=== PATIENT | female | born 1995 | race Caucasian/White ===

== ENCOUNTER 2024-12-05 13:03 | Observation (INO) ==
[2024-12-05 14:38] LABS: BASOPHILS % (AUTO) 0.3 %; EOSINOPHILS % (AUTO) 0.2 %; HCT - HEMATOCRIT 40.2 % (37.0-47.0); HGB - HEMOGLOBIN 12.6 g/dL (12.0-16.0); LYMPHOCYTES # (AUTO) 2.2 10^3/uL (1.5-3.5); MEAN CORPUSCULAR HEMOGLOBIN 27.2 pg (27.0-31.0); MEAN CORPUSCULAR HGB CONC 31.3 g/dL (32.0-36.0); MEAN CORPUSCULAR VOLUME 86.8 fL (81.0-99.0); MONOCYTES # (AUTO) 0.7 10^3/uL (0.0-1.0); MONOCYTES % (AUTO) 7.8 %; NEUTROPHILS % (AUTO) 66.5 %; PLT - PLATELET COUNT 279 10^3/uL (130-450); RED BLOOD COUNT 4.63 10^6/uL (4.20-5.40); RED CELL DISTRIBUTION WIDTH 15.6 % (12.0-15.0)
[2024-12-05 14:49] LABS: BILIRUBIN,URINE NEGATIVE (NEGATIVE); GLUCOSE, URINE (UA) NEGATIVE (NEGATIVE); KETONES,URINE (UA) NEGATIVE (NEGATIVE); LEUKOCYTE ESTERASE, URINE NEGATIVE (NEGATIVE); NITRITE,URINE NEGATIVE (NEGATIVE); OCCULT BLOOD,URINE NEGATIVE (NEGATIVE); PROTEIN,URINE NEGATIVE (NEGATIVE); UROBILINOGEN,URINE 0.2 (NORMAL) E.U./dL (NORMAL)
[2024-12-05 14:51] LABS: CLARITY,URINE CLEAR (CLEAR); HCG UR QUAL NEGATIVE
[2024-12-05 14:52] LABS: ALBUMIN 4.1 g/dL (3.2-5.5); ALBUMIN/GLOBULIN RATIO 1.8 (1.0-2.2); BILIRUBIN,TOTAL 0.2 mg/dL (0.2-1.0); CALCIUM 9.1 mg/dL (8.5-10.3); CREATININE 0.6 mg/dL (0.6-1.3); POTASSIUM 3.4 mmol/L (3.5-4.5); TOTAL PROTEIN 6.4 g/dL (6.4-8.9)
--- NOTE | 2024-12-05 14:58 | ED Physician Documentation ---
History of Present Illness Stated complaint Stated Complaint: /PX Chief complaint Chief Complaint: Abd Pain History obtained from History obtained from: Patient History of Present Illness Pain level max: 10 Pain level now: 10 Additonal information Additional information: Patient is a 29-year-old female who presents to the emergency department with ongoing right pelvic pain. She states that she was at [facility] on December 03 and was taken to the operating room for potential ovarian torsion. She states that they removed her right fallopian tube but left the right ovary. She states that she has a history of ovarian torsion on the right side many years ago. Patient states that she was seen at [facility] again last night for increasing pain and had a repeat CT scan which did not show any acute abnormalities. She states that ketamine worked well for her pain. She is on Suboxone at home. Has also had issues with constipation. Review of Systems Constitutional Denies: Fever or Chills Cardiovascular Denies: chest pain or shortness of breath with exertion Respiratory Denies: Shortness of breath or Cough Gastrointestinal Denies: Vomiting Genitourinary Denies: Painful urination, Urinary frequency or Urinary urgency Meds/Allgy Home Medications Ambulatory Orders Medication Instructions Recorded Confirmed buprenorphine HCl 8 mg sublingual 8 mg sublingual QDAY 08/28/24 11/18/24 tablet cholecalciferol (vitamin D3) 50 50 mcg PO QDAY #90 caps 11/18/24 11/18/24 mcg (2,000 unit) capsule drospirenone (contraceptive) 4 mg 1 tab PO QDAY #84 tabs 11/18/24 11/18/24 (28) tablet (Slynd) levothyroxine 125 mcg tablet 125 mcg PO QDAY #90 tabs 11/18/24 11/18/24 (Synthroid) omega 8-brn-qqh-fish oil 300 2 cap PO BID #240 caps 11/18/24 11/18/24 mg-1,000 mg capsule (Fish Oil) vitamins no.154-ferrous 1 tab PO .daily #90 tabs 11/18/24 11/18/24 fumarate 27 mg-folic acid 1 mg tablet sertraline 50 mg tablet (Zoloft) 50 mg PO QDAY #90 tabs 11/18/24 11/18/24 Allergies Allergies Allergy/AdvReac Type Severity Reaction Status Date / Time haloperidol Allergy Severe Unknown Verified 12/05/24 13:08 metoclopramide Allergy Severe Hallucinati Verified 12/05/24 13:08 ons prochlorperazine Allergy Severe Hallucinati Verified 12/05/24 13:08 ons Iodinated Contrast Media Allergy Mild Itching Verified 12/05/24 13:08 amoxicillin Allergy Hives Verified 12/05/24 13:08 azithromycin Allergy Unknown Verified 12/05/24 13:08 clavulanic acid (From Allergy Hives Verified 12/05/24 13:08 Augmentin) fluoxetine Allergy Unknown Verified 12/05/24 13:08 vancomycin Allergy Unknown Verified 12/05/24 13:08 PFSH Active Problems All Active Problems (Updated 12/05/24 @ 17:42 by Sheldon Brown MD) Ovarian torsion (Acute) Pelvic pain in female (Acute) Mixed anxiety and depressive disorder (Acute) Delmy thyroiditis (Acute) At risk for breast cancer (Acute) Opioid dependence on maintenance agonist therapy, no symptoms (Acute) Hypothyroid (Acute) Medical History Medical History (Updated 12/05/24 @ 17:42 by Sheldon Brown MD) IUD failure, (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 History of hyperemesis gravidarum lost 30 pounds in beginning of 3rd Supraventricular tachycardia now resolved. Surgical History Surgical History (Updated 11/18/24 @ 16:19 by Tanisha Rivera MD) History of repair of ACL History of tonsillectomy History of appendectomy History of cholecystectomy History of delivery (02/16/22) Family History Family History (Updated 08/21/24 @ 08:51 by Fay Flaherty RN) Father Alcoholism Anxiety Maternal grandmother COPD (chronic obstructive pulmonary disease) Lupus (systemic lupus erythematosus) Rheumatoid arthritis Maternal grandfather Diabetes High blood pressure Mother High blood pressure Lupus (systemic lupus erythematosus) Malignant melanoma Rheumatoid arthritis Thyroid disease Brother Seizure Social History Social History (Updated 08/19/24 @ 15:58 by Fay Flaherty RN) Smoking Status: Unknown if ever smoked Do you feel safe in your home environment?: Yes Suffered physical, verbal, emotional, or financial abuse?: No Exam Exam Vital Signs: Vital Signs x48h Temp Pulse Resp BP Pulse Ox 12/05/24 17:50 36.8 C 91 18 130/81 96 12/05/24 17:00 95 18 130/81 96 12/05/24 15:54 92 18 121/76 97 12/05/24 13:08 36.5 C 100 18 132/80 H 100 Constitutional normal general appearance Patient appears uncomfortable, rocking back and forth in the bed HENMT oral mucous membranes normal Eyes PERRL Neck/C-Spine trachea midline Respiratory breath sounds equal bilaterally and normal respiratory effort Cardiovascular normal heart rate noted and regular rhythm noted Gastrointestinal abdomen soft to palpation and nondistended Tender to palpation right lower quadrant without peritoneal signs Genitourinary no CVA tenderness Extremities No calf tenderness or cord. No edema Psychiatry mental status grossly normal and oriented x3 Skin skin color normal Results Vitals Vitals: Vital Signs - 24 hr 12/05/24 13:08 12/05/24 15:54 12/05/24 16:26 Temperature 36.5 C Temperature Source Tympanic Pulse Rate 100 92 Respiratory Rate 18 18 Blood Pressure 132/80 H 121/76 O2 Saturation 100 97 O2 Source Room air Room air Pain Intensity 9 7 7 12/05/24 17:00 12/05/24 17:50 Temperature 36.8 C Temperature Source Temporal Artery Scan Pulse Rate 95 91 Respiratory Rate 18 18 Blood Pressure 130/81 130/81 O2 Saturation 96 96 O2 Source Room air Room air Pain Intensity 8 7 Oxygen O2 Source Room air Labs Labs: Laboratory Tests 12/05/24 12/05/24 14:30 14:39 WBC 9.0 RBC 4.63 Hgb 12.6 Hct 40.2 MCV 86.8 MCH 27.2 MCHC 31.3 L RDW 15.6 H Plt Count 279 MPV 10.0 Neut # (Auto) 6.0 Lymph # (Auto) 2.2 [place] # (Auto) 0.7 Eos # (Auto) 0.0 Baso # (Auto) 0.0 Absolute Nucleated RBC 0.00 Nucleated RBC % 0.0 Sodium 140 Potassium 3.4 L Chloride 110 Carbon Dioxide 25 Anion Gap 5.0 L BUN 11 Creatinine 0.6 Estimated GFR (MDRD) 120 Glucose 88 Calcium 9.1 Total Bilirubin 0.2 AST 15 ALT 10 Alkaline Phosphatase 62 Total Protein 6.4 Albumin 4.1 Globulin 2.3 Albumin/Globulin Ratio 1.8 Lipase 29 Urine Color YELLOW Urine Clarity CLEAR Urine pH 6.0 Ur Specific [place] 1.010 Urine Protein NEGATIVE Urine Glucose (UA) NEGATIVE Urine Ketones NEGATIVE Urine Occult Blood NEGATIVE Urine Nitrite NEGATIVE Urine Bilirubin NEGATIVE Urine Urobilinogen 0.2 (NORMAL) Ur Leukocyte Esterase NEGATIVE Ur Microscopic Review NOT INDICATED Urine Culture Comments NOT INDICATED Urine HCG, Qual NEGATIVE Rads (name of study) Pelvic ultrasound: Relevant Findings:: Final report received PD Medical Decision Making ED course Complexity details: reviewed old records, reviewed results, re-evaluated patient, considered differential, d/w patient and d/w weight loss sales consultant ED course: Obtain records from [facility] and reviewed them. Patient was given ketamine and buprenorphine for pain, pain difficult to control. Consulted with gynecology, Dr. Lugo, she recommends obtaining a pelvic ultrasound. This was performed. Possible decreased flow to the ovary. She came and evaluated the patient will take the patient to the OR for further care. This document was made in part using voice recognition software. While efforts are made to proofread this document, sound alike and grammatical errors may occur. Discharge Plan Discharge Patient Disposition: ED Transfer to [facility] Condition: Stable Clinical Impression: Pelvic pain in female, Ovarian torsion
[2024-12-05] MEDS: SODIUM CHLORIDE 0.9% IV STA ×2 (15:01→18:20)
[2024-12-05] MEDS: KETAMINE IV STA ×2 (15:01→18:20)
[2024-12-05] MEDS: KETOROLAC 30 MG/ML VIAL IVP STA (16:26)
[2024-12-05] MEDS: BUPRENORPHINE 0.3 MG/ML VIAL IVP ONE (16:30)
--- NOTE | 2024-12-05 16:40 | Ultrasound Report ---
PROCEDURE: US Pelvic w/TV+Doppler Comp INDICATIONS: R ovarian pain s/p R salpingectomy TECHNIQUE: Real-time scanning was performed of the pelvic organs, with image documentation. Additional endovagi nal scanning was necessary due to incomplete visualization of the adnexal and endometrial structures by transabdominal scanning. Doppler interrogation was performed of the ovaries bilaterally. COMPARISON: None. FINDINGS: Uterus: Uterus is anteverted and normal in size at 10.4 x 3.8 x 5.7 cm. The myometrium is homogeneo us. The endometrium measures 7.4 mm in combined thickness. Ovaries: The right ovary measures 2.4 x 1.5 x 1.7 cm, with a calculated ovarian volume of 3.1 cc. T he left ovary measures 2.1 x 1.7 x 1.3 cm, with a calculated ovarian volume of 2.3 cc. Appropriate b lood flow to the left ovary Doppler interrogation. Evaluation of the right ovary is limited secondary to location, however some blood flow was detected. Less than 12 follicles can be seen in each ovar y. No adnexal masses are seen. No cystic lesions measuring greater than 3 cm. Other: No pathologic free abdominal or pelvic fluid. IMPRESSION: Limited evaluation of the right ovary due to location, however some blood flow is detected. Left ovar y is normal in appearance with flow. Reviewed by: Juancarlos Nails MD on 12/05/2024 4:39 PM PDT Approved by: Juancarlos Nails MD on 12/05/2024 4:39 PM PDT Station ID: [id number]
[2024-12-05] MEDS: ACETAMINOPHEN 1,000 MG/100 ML 1,000 MG/100 ML BAG IV ONE (17:41)
[2024-12-05] MEDS ORDERED: DEXAMETHASONE 4 MG/ML VIAL ONE (19:29)
[2024-12-05] MEDS ORDERED: SUGAMMADEX 200 MG/2 ML VIAL IVP ONE (19:29)
[2024-12-05] MEDS ORDERED: ONDANSETRON 4 MG/2 ML VIAL ONE (19:29)
[2024-12-05] MEDS ORDERED: ROCURONIUM 50 MG/5 ML VIAL ONE ×2 (19:31→19:40)
[2024-12-05] MEDS ORDERED: PROPOFOL 200 MG/20 ML VIAL IVP ONE ×2 (19:31→20:19)
[2024-12-05] MEDS ORDERED: LIDOCAINE 1%-EPI 1:100000 20 ML MDV ONE (19:34)
--- NOTE | 2024-12-05 20:54 | HISTORY & PHYSICAL EXAMINATION ---
Chief Complaint Chief Complaint Chief Complaint: Right lower quadrant pain History of Present Illness Admitted From Admitted From:: [facility] Emergency Room History Obtained From Records Reviewed: [facility] ER and OR records History obtained from: Patient and record review Exam Limitations: Pain History of Present Illness HPI Comment/Other: Patient is a 29 yo , who presented to the ER today for ongoing severe RLQ pain that started 5-6 days ago. Pain is waxing/waning and causes nausea. Last meal was last evening due to severity of pain. She states the pain is similar to her past episode of ovarian torsion, which occurred approx 10 yrs ago. She presented to [facility] for pain on 12/[address] pelvis was negative/normal. She then presented to [facility] on 12/03. CT and pelvic US were normal; but, given presence of acute abdomen, ovarian torsion was suspected and surgical exploration recommended. She is s/p LSC appy 10 yrs ago and has no hx of urolithiasis. Dr. Ward at [facility] completed her surgery on 12/03. Operative findings noted a normal-appearing right ovary but a clubbed right tube with paratubal cysts that could be torsing and contributing to sx. The right tube was removed and the ROV left in situ. The patient reports mild improvement in her pain that night (which she suspects may have just been related to postop recovery and pain meds), and she was sent home late that night. On 12/04, her pain had returned - similar in intensity and location. Repeat CT and pelvic US at [facility] was unchanged. PHTHALIC ACID PURIFIER was re-consulted but suspicion was for non-PHTHALIC ACID PURIFIER cause. She did have notable stool burden during her LSC, so she was encouraged to optimize her bowel regimen. She has been trying to manage pain with Motrin, Tylenol, and hot/cold compresses with no improvement. She reports pain is worse with activity. She denies fever; chills; vaginal discharge, itching, or irritation; or change in bowel or bladder. She acknowledges having chronic constipation due to Suboxone but states she's never had pain like this before due to it. PHTHALIC ACID PURIFIER Hx: reports usually regular, monthly menses but none since vaginal delivery 3 months ago; denies other PHTHALIC ACID PURIFIER hx; she is currently using Slynd for contraception OB Hx: ; G1 - ; G2 - IOL for cholestasis, for NRFHT; G3 - cholestasis, 3 months ago (conceived with IUD) Meds/Allgy Home Medications Ambulatory Orders Medication Instructions Recorded Confirmed buprenorphine HCl 8 mg sublingual 8 mg sublingual QDAY 08/28/24 11/18/24 tablet cholecalciferol (vitamin D3) 50 50 mcg PO QDAY #90 caps 11/18/24 11/18/24 mcg (2,000 unit) capsule drospirenone (contraceptive) 4 mg 1 tab PO QDAY #84 tabs 11/18/24 11/18/24 (28) tablet (Slynd) levothyroxine 125 mcg tablet 125 mcg PO QDAY #90 tabs 11/18/24 11/18/24 (Synthroid) omega 8-myk-hye-fish oil 300 2 cap PO BID #240 caps 11/18/24 11/18/24 mg-1,000 mg capsule (Fish Oil) vitamins no.154-ferrous 1 tab PO .daily #90 tabs 11/18/24 11/18/24 fumarate 27 mg-folic acid 1 mg tablet sertraline 50 mg tablet (Zoloft) 50 mg PO QDAY #90 tabs 11/18/24 11/18/24 Allergies Allergies Allergy/AdvReac Type Severity Reaction Status Date / Time haloperidol Allergy Severe Unknown Verified 12/05/24 13:08 metoclopramide Allergy Severe Hallucinati Verified 12/05/24 13:08 ons prochlorperazine Allergy Severe Hallucinati Verified 12/05/24 13:08 ons Iodinated Contrast Media Allergy Mild Itching Verified 12/05/24 13:08 amoxicillin Allergy Hives Verified 12/05/24 13:08 azithromycin Allergy Unknown Verified 12/05/24 13:08 clavulanic acid (From Allergy Hives Verified 12/05/24 13:08 Augmentin) fluoxetine Allergy Unknown Verified 12/05/24 13:08 vancomycin Allergy Unknown Verified 12/05/24 13:08 PFSH Active Problems All Active Problems Ovarian torsion (Acute) Pelvic pain in female (Acute) Mixed anxiety and depressive disorder (Acute) Delmy thyroiditis (Acute) At risk for breast cancer (Acute) Opioid dependence on maintenance agonist therapy, no symptoms (Acute) Hypothyroid (Acute) Medical History Medical History IUD failure, (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 History of hyperemesis gravidarum lost 30 pounds in beginning of 3rd Supraventricular tachycardia now resolved. Surgical History Surgical History History of repair of ACL History of tonsillectomy History of appendectomy History of cholecystectomy History of delivery (02/16/22) Family History Family History (Updated 08/21/24 @ 08:51 by Fay Flaherty, RN) Father Alcoholism Anxiety Maternal grandmother COPD (chronic obstructive pulmonary disease) Lupus (systemic lupus erythematosus) Rheumatoid arthritis Maternal grandfather Diabetes High blood pressure Mother High blood pressure Lupus (systemic lupus erythematosus) Malignant melanoma Rheumatoid arthritis Thyroid disease Brother Seizure Social History Social History (Updated 08/19/24 @ 15:58 by Fay Flaherty, RN) Smoking Status: Unknown if ever smoked Do you feel safe in your home environment?: Yes Suffered physical, verbal, emotional, or financial abuse?: No POLST Patient has POLST: No POLST Status: Full Code Review of Systems Status of ROS: 10 or more systems reviewed and unremarkable except as noted in history and below Prior Level of Functionality: Fully functional, young parent with 3 month old infant and 3/6 yo children Exam Exam Vital Signs: Vital Signs x48h Temp Pulse Resp BP Pulse Ox 12/05/24 21:21 93 16 120/80 94 12/05/24 21:15 94 20 129/82 95 12/05/24 21:10 37 C 94 16 129/84 95 12/05/24 21:05 96 15 126/82 96 12/05/24 20:55 91 16 120/75 95 12/05/24 20:50 92 22 122/77 94 12/05/24 20:46 96 19 125/77 97 12/05/24 20:40 100 18 127/88 99 12/05/24 20:35 36.3 C L 106 H 14 121/78 99 12/05/24 17:50 36.8 C 91 18 130/81 96 12/05/24 17:00 95 18 130/81 96 12/05/24 15:54 92 18 121/76 97 Constitutional normal general appearance HENMT normocephalic and head/scalp atraumatic Eyes PERRL and EOMs intact bilaterally Respiratory normal respiratory effort Cardiovascular normal heart rate noted and peripheral pulses 2+ throughout Gastrointestinal abdomen soft to palpation and nondistended Tender at RLQ; suprapubic pressure refers pain to RLQ; no rebound; tenderness increased with flexion of abdominal wall Genitourinary Notable tenderness at introitus and bilateral levators, R>L. Pain refers to RLQ during palpation. Extremities normal to inspection Neurology no movement abnormality noted, no focal motor deficit noted and no sensory deficits noted Psychiatry mental status grossly normal, oriented x3, thought process normal, cooperative and affect normal Skin skin color normal Incisions x 3 present on abdomen; 5-mm umbilical incision with some bruising inferiorly; no erythema or exudative discharge; 2 LLQ 5-mm incisions well- approximated with no erythema or discharge Conclusion/Plan Problem List (1) Pelvic pain in female: Plan: 29 yo female with 5-6 days of RLQ pain, possible intermittent torsion. US today notes normal-appearing ovary positioned deep within the pelvis with some flow present. However, this does not completely exclude intermittent torsion. - With increased pain noted during abdominal wall flexion, attempted to manage pain with trial of lidocaine injection in the ER. 10 ml of lidocaine plain was injected at the point of maximal tenderness. After 5 min, she noted no improvement in pain. - Unable to control pain with narcotic pain meds or buprenorphine. Finally, Ketamine IV was helpful. - Discussed pain severity and acute abdomen. As intermittent torsion cannot be excluded, offered repeat LSC with un-torsing of ovary with or without right oophorectomy. Discussed advantage of oophorectomy would be to eliminate the R adnexa as a source for her pain. Disadvantage is loss of (likely) a normal ovary. Pt desired to proceed with surgery and remove the right ovary. Reviewed surgical expectations and risks, including (but not limited to) bleeding, infection, injury to surrounding organs, postop scarring, postop pain, and anesthesia risks (heart attack, stroke, , blood clots). Consent reviewed and signed. - To OR tonight for LSC, R oophorectomy once OR team ready/assembled. (2) Ovarian torsion: (3) Opioid dependence on maintenance agonist therapy, no symptoms: Lab Results Lab results reviewed: Yes 12/05/24 14:30 12/05/24 14:30 Diagnostic Imaging Results Diagnostic Imaging Results: positive Final report reviewed Diagnostic Imaging Results Comments: ER US today (12/05): INDICATIONS: R ovarian pain s/p R salpingectomy TECHNIQUE: Real-time scanning was performed of the pelvic organs, with image documentation. Additional endovaginal scanning was necessary due to incomplete visualization of the adnexal and endometrial structures by transabdominal scanning. Doppler interrogation was performed of the ovaries bilaterally. COMPARISON: None. FINDINGS: Uterus: Uterus is anteverted and normal in size at 10.4 x 3.8 x 5.7 cm. The myometrium is homogeneous. The endometrium measures 7.4 mm in combined thickness. Ovaries: The right ovary measures 2.4 x 1.5 x 1.7 cm, with a calculated ovarian volume of 3.1 cc. The left ovary measures 2.1 x 1.7 x 1.3 cm, with a calculated ovarian volume of 2.3 cc. Appropriate blood flow to the left ovary Doppler interrogation. Evaluation of the right ovary is limited secondary to location, however some blood flow was detected. Less than 12 follicles can be seen in each ovary. No adnexal masses are seen. No cystic lesions measuring greater than 3 cm. Other: No pathologic free abdominal or pelvic fluid. IMPRESSION: Limited evaluation of the right ovary due to location, however some blood flow is detected. Left ovary is normal in appearance with flow.
[2024-12-05] MEDS ORDERED: KETAMINE 500 MG/10 ML VIAL ONE (20:55)
--- NOTE | 2024-12-05 21:29 | ANESTHESIA POST OP EVALUATION ---
Anesthesia Post Eval Post Anesthesia Eval Vitals: Last Vital Signs Temp 37 C 12/05/24 21:10 Pulse 89 12/05/24 21:25 Resp 18 12/05/24 21:25 BP 127/81 12/05/24 21:25 Pulse Ox 95 12/05/24 21:25 CV Function Including HR & BP: Stable Pain Control: Satisfactory Nausea & Vomiting: Negative Mental Status: Baseline Respiratory Status: Airway Patent Hydration Status: Satisfactory Anesthesia Complications: None
--- NOTE | 2024-12-05 21:51 | OPERATIVE REPORT ---
Operative Report General Procedure Data: Operation Date: 12/05/24 19:00 Proposed Procedures p Diagnostic Laparoscopy CAISSON WORKER(Right) - Kate Lugo MD Actual Procedures p Laparoscopic Oopherectomy right - Kate Lugo MD Anesthesia Type General Case Staff Anesthesia Provider: Ijeoma Wood Case Times Into Recovery: 12/05/24 20:33 Procedure Start: 12/05/24 19:38 Procedure End: 12/05/24 20:21 Time out: 12/05/24 19:37 Pre-Op Diagnosis: Female pelvic pain, right lower quadrant; intermittent ovarian torsion Post Op Diagnosis: Same; normal-appearing right ovary Procedure Note Intake, IV Amount (ml): 1,000 Estimated Blood Loss (ml): 5 Output, Urine Amount (ml): 75 Pathology: Right ovary Indications: Severe right lower quadrant pain, suspicious for intermittent ovarian torsion Findings: Normal-appearing right and left ovaries and uterus. Normal-appearing left fallo pian tube. Right tube surgically absent. Appendix and gallbladder surgically absent. Omental adhesion to anterior abdominal wall, at level of the umbilicus. Thin bowel adhesion to R mid flank - left in situ. No endometriosis or inflammatory changes present. Complications: None Other Other Information/Narrative: OPERATIVE NOTE Pre-operative diagnosis: 1. Female pelvic pain, right lower quadrant 2. Suspected intermittent ovarian torsion Procedure: laparoscopic right oophorectomy Post-operative diagnosis: same as above; normal-appearing right ovary Surgeon: Dr. Kate Lugo Spar Machine Operator: JADYN Knox Anesthesia: General Findings: Normal-appearing right and left ovaries and uterus. Normal-appearing left fallopian tube. Right tube surgically absent. Appendix and gallbladder surgically absent. Omental adhesion to anterior abdominal wall, at level of the umbilicus. Thin bowel adhesion to R mid flank - left in situ. No endometriosis or inflammatory changes present. Complications: None apparent EBL: 5 ml UOP: 75 ml Specimen: Right ovary Disposition: Stable, to PACU Procedure in detail: After risks benefits and alternatives, as well as indication for procedure and anticipated post-operative recovery course was discussed with the patient informed consent was obtained and patient was taken to the operating theater where general anesthesia was administered without difficulty. Pt was prepared and draped in normal sterile fashion. A Newton catheter was inserted for the duration of the case. Sponge stick placed in vagina for uterine manipulation. Prior to skin incision surgical time out was performed, all persons in the operating theater participated in time out and agreed. After injecting Lidocaine 1% with epi, an Infraumbilical skin incision was made with scalpel, over her old incision. The fascia was grasped and tented up with a Josr while a Verrees needle was inserted. After passing into the peritoneal cavity, saline dropped readily into the abdomen, and gas insufflation was initiated. Appropriate intra-peritoneal pressure was noted. The Verrees was then removed. Direct visualization was utilized to insert 5mm scope/port. Peritoneum was further insufflated. Pelvis inspected with findings as noted. Two additional 5mm ports were placed at the left lower quadrant, at the sites of her previous LSC incisions. Atraumatic grasper utilized to reveal aforementioned findings. After identifying the right ureter deep posterior to the ovary, Ligasure was used to remove the right ovary without difficulty. Hemostasis achieved with additional cautery as needed. The umbilical port was changed to a 10 mm to allow placement of a 10 mm Endocatch. The ROV was brought to the skin in the Endocatch then easily removed. Reinspected pelvis, all hemostatic. Pt taken out of trendelenberg position, insufflation released from abdomen, ports removed. The umbilical port was closed with 0 Vicryl at the fascia, using a figure of eight suture. Skin closed with 4.0 monocryl in a subcuticular fashion, followed by Dermabond. Sponge stick and Newton catheter were then removed, and the patient replaced supine. Pt tolerated procedure well. All counts correct. Pt to PACU in stable condition.
[2024-12-05] MEDS ORDERED: KETAMINE IV PRN (22:00)
[2024-12-05] MEDS ORDERED: SODIUM CHLORIDE 0.9% IV PRN (22:00)
[2024-12-05] MEDS: diphenhydrAMINE 25 MG CAPSULE PO PRN (22:32)
[2024-12-05] MEDS: oxyCODONE 5 MG TABLET PO PRN (22:32)
[2024-12-05] MEDS: fentaNYL 100 MCG/2 ML VIAL IVP PRN (23:16)
[2024-12-06] MEDS ORDERED: KETOROLAC 30 MG/ML VIAL IVP SCH
[2024-12-06] MEDS: ACETAMINOPHEN 500 MG TABLET PO PRN (01:08)
[2024-12-06] MEDS: KETOROLAC 30 MG/ML VIAL IVP SCH (01:09)
[2024-12-06] MEDS: MORPHINE 10 MG/ML VIAL IM ONE (01:19)
[2024-12-06] MEDS: LACTATED RINGERS 1,000 ML IV SCH (01:22)
[2024-12-06] MEDS: ONDANSETRON 4 MG/2 ML VIAL IVP PRN (08:23)
[2024-12-06] MEDS: polyethylene glycoL 3350 17 GM PACKET PO PRN (08:23)
[2024-12-06] MEDS: FAMOTIDINE 20 MG/2 ML VIAL IVP PRN (09:07)
[2024-12-06] MEDS ORDERED: diphenhydrAMINE 25 MG CAPSULE PO PRN (09:44)
[2024-12-06] MEDS: ACETAMINOPHEN 325 MG TABLET PO SCH (10:32)
[2024-12-06] MEDS: GABAPENTIN 100 MG CAPSULE PO SCH (10:32)
[2024-12-06] MEDS: HYDROmorphone 2 MG TABLET PO PRN (11:09)
--- NOTE | 2024-12-06 12:40 | CONSULTATION NOTE ---
Referring Provider Name of Referring Provider:: Kate Lugo Consult Date: 12/06/24 Chief Complaint Chief Complaint Chief Complaint: RLQ abdominal pain History of Present Illness History Obtained From Records Reviewed: EMR History obtained from: Patient Exam Limitations: None History of Present Illness HPI Comment/Other: 29 yo F with pmhx of opioid use disorder on buprenorphine, , ovarian torsion 10 yrs ago, appendectomy 10 yrs ago, admitted for RLQ pain and concern for ovarian torsion. S/p laparoscopic Right oophrectomy on 12/05/24. Ovary appeared normal per OB. Medicine is consulted for post op pain management. Pt notes she became addicted to prescription opioids after a surgery several years ago and was subsequently switched to buprenorphine. She follows with [facility] in [place] for OUD. She was seen at OSH 2 days ago and underwent larososcpy with R fallopian tube removal at that time. Overnight pt has been treated with iv tylenol, iv ketorolac, fentanyl, morphine, oxycodone. She notes ketorolc helped a little for short period of time. Fentanyl took the pain away for around 5 min. oxycodone 10mg helped a little but effect also wore off quickly. She remains in severe pain. Last dose of buprenorphine (0.3 mg i.v.) was yesterday afternoon. She received ketamine in the ED and states this is the only medicine that has helped her pain. She reports she is passing flatus, no BM. Nausea this am and states benadryl helps. Meds/Allgy Home Medications Ambulatory Orders Medication Instructions Recorded Confirmed buprenorphine HCl 8 mg sublingual 8 mg sublingual QDAY 08/28/24 11/18/24 tablet cholecalciferol (vitamin D3) 50 50 mcg PO QDAY #90 caps 11/18/24 11/18/24 mcg (2,000 unit) capsule drospirenone (contraceptive) 4 mg 1 tab PO QDAY #84 tabs 11/18/24 11/18/24 (28) tablet (Slynd) levothyroxine 125 mcg tablet 125 mcg PO QDAY #90 tabs 11/18/24 11/18/24 (Synthroid) omega 0-lxn-cfr-fish oil 300 2 cap PO BID #240 caps 11/18/24 11/18/24 mg-1,000 mg capsule (Fish Oil) vitamins no.154-ferrous 1 tab PO .daily #90 tabs 11/18/24 11/18/24 fumarate 27 mg-folic acid 1 mg tablet sertraline 50 mg tablet (Zoloft) 50 mg PO QDAY #90 tabs 11/18/24 11/18/24 Allergies Allergies Allergy/AdvReac Type Severity Reaction Status Date / Time haloperidol Allergy Severe Unknown Verified 12/05/24 13:08 metoclopramide Allergy Severe Hallucinati Verified 12/05/24 13:08 ons prochlorperazine Allergy Severe Hallucinati Verified 12/05/24 13:08 ons Iodinated Contrast Media Allergy Mild Itching Verified 12/05/24 13:08 amoxicillin Allergy Hives Verified 12/05/24 13:08 azithromycin Allergy Unknown Verified 12/05/24 13:08 clavulanic acid (From Allergy Hives Verified 12/05/24 13:08 Augmentin) fluoxetine Allergy Unknown Verified 12/05/24 13:08 vancomycin Allergy Unknown Verified 12/05/24 13:08 naloxone AdvReac Intermediate vomit Verified 12/06/24 12:26 PFSH Active Problems All Active Problems Ovarian torsion (Acute) Pelvic pain in female (Acute) Mixed anxiety and depressive disorder (Acute) Delmy thyroiditis (Acute) At risk for breast cancer (Acute) Opioid dependence on maintenance agonist therapy, no symptoms (Acute) Hypothyroid (Acute) Medical History Medical History IUD failure, (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 History of hyperemesis gravidarum lost 30 pounds in beginning of 3rd Supraventricular tachycardia now resolved. Surgical History Surgical History History of repair of ACL History of tonsillectomy History of appendectomy History of cholecystectomy History of delivery (02/16/22) Family History Family History (Updated 08/21/24 @ 08:51 by Fay Flaherty RN) Father Alcoholism Anxiety Maternal grandmother COPD (chronic obstructive pulmonary disease) Lupus (systemic lupus erythematosus) Rheumatoid arthritis Maternal grandfather Diabetes High blood pressure Mother High blood pressure Lupus (systemic lupus erythematosus) Malignant melanoma Rheumatoid arthritis Thyroid disease Brother Seizure Social History Social History (Updated 08/19/24 @ 15:58 by Fay Flaherty RN) Smoking Status: Unknown if ever smoked Do you feel safe in your home environment?: Yes Suffered physical, verbal, emotional, or financial abuse?: No POLST Patient has POLST: No POLST Status: Full Code Results Lab Results Lab results reviewed: Yes 12/05/24 14:30 12/05/24 14:30 Other Lab Results: Lab Results x24hrs 12/05/24 12/05/24 Range/Units 14:39 14:30 WBC 9.0 (4.8-10.8) x10^3/uL RBC 4.63 (4.20-5.40) 10^6/uL Hgb 12.6 (12.0-16.0) g/dL Hct 40.2 (37.0-47.0) % MCV 86.8 (81.0-99.0) fL MCH 27.2 (27.0-31.0) pg MCHC 31.3 L (32.0-36.0) g/dL RDW 15.6 H (12.0-15.0) % Plt Count 279 (130-450) 10^3/uL MPV 10.0 (7.9-10.8) fL Neut # (Auto) 6.0 (1.5-6.6) 10^3/uL Lymph # (Auto) 2.2 (1.5-3.5) 10^3/uL [place] # (Auto) 0.7 (0.0-1.0) 10^3/uL Eos # (Auto) 0.0 (0.0-0.7) 10^3/uL Baso # (Auto) 0.0 (0.0-0.1) 10^3/uL Absolute Nucleated RBC 0.00 x10^3/uL Nucleated RBC % 0.0 /100WBC Sodium 140 (135-145) mmol/L Potassium 3.4 L (3.5-4.5) mmol/L Chloride 110 (101-111) mmol/L Carbon Dioxide 25 (21-32) mmol/L Anion Gap 5.0 L (6-13) BUN 11 (6-20) mg/dL Creatinine 0.6 (0.6-1.3) mg/dL Estimated GFR (MDRD) 120 (>89) Glucose 88 (74-104) mg/dL Calcium 9.1 (8.5-10.3) mg/dL Total Bilirubin 0.2 (0.2-1.0) mg/dL AST 15 (10-42) IU/L ALT 10 (10-60) IU/L Alkaline Phosphatase 62 (42-121) IU/L Total Protein 6.4 (6.4-8.9) g/dL Albumin 4.1 (3.2-5.5) g/dL Globulin 2.3 (2.1-4.2) g/dL Albumin/Globulin Ratio 1.8 (1.0-2.2) Lipase 29 (11-82) U/L Urine Color YELLOW Urine Clarity CLEAR (CLEAR) Urine pH 6.0 (5.0-7.5) PH Ur Specific [place] 1.010 (1.002-1.030) Urine Protein NEGATIVE (NEGATIVE) mg/dL Urine Glucose (UA) NEGATIVE (NEGATIVE) mg/dL Urine Ketones NEGATIVE (NEGATIVE) mg/dL Urine Occult Blood NEGATIVE (NEGATIVE) Urine Nitrite NEGATIVE (NEGATIVE) Urine Bilirubin NEGATIVE (NEGATIVE) Urine Urobilinogen 0.2 (NORMAL) (NORMAL) E.U./dL Ur Leukocyte Esterase NEGATIVE (NEGATIVE) Ur Microscopic Review NOT INDICATED Urine Culture Comments NOT INDICATED Urine HCG, Qual NEGATIVE Diagnostic Imaging Results Diagnostic Imaging Results: positive Final report reviewed Review of Systems Status of ROS: 10 or more systems reviewed and unremarkable except as noted in history and below Exam Exam Vital Signs: Vital Signs x48h Temp Pulse Resp BP Pulse Ox 12/06/24 10:30 73 106/70 12/06/24 07:33 36.6 C 66 16 106/62 98 young woman lying in bed, comfortable appearing, sclera anicteric, MMM LCTAB, nonlabored RRR, S1S2, no edema abd soft, larosocopy wound c/d/i, mild diffuse tenderness on R side, no guarding, BS+ AAOx3, no tremor, strength 5/5 UE and LE bilat Conclusion/Plan Problem List (1) Pelvic pain in female: (2) Ovarian torsion: (3) Opioid dependence on maintenance agonist therapy, no symptoms: Plan Assessment: 1. Post-operative abdominal pain 2. opioid use disorder on buprenorphine 3. POD 1 laparoscopic Right oophrectomy Acute pain control is more complicated in patients on chronic buprenorphine given partial agonism effects of this medication. Options include higher doses of short acting opioids and increased doses of buprenorphine. In patients with severe uncontrolled pain, stopping buprenorphine for a short time is sometimes required. It does not appear this pt has a post operative complication. Abdomen exam in non-acute, VSS, non-toxic appearing. Will add non-opioid analgesics as well for multi-modal pain regimen and attempt to limit course of short acting opioids as much as possible. Tried dilaudid 6 mg po this am with little effect. Recommendations: - increase buprenorphine SL dose to 8 mg BID (home dose 8 mg q hs). Pt provided home supply and it was given to our pharmacy to verify and dispense. - gabapentin 100 mg po TID - scheduled tylenol 975 q 8 hrs - scheduled ibuprofen 600 mg q 8 hrs - stopped oxycodone, ketorolac, fentanyl, iv tylenol - if pain uncontrolled on current regimen, consider higher doses of po or iv hydromorphone - will call her pain/addiction clinic on Sunday to inform them of hospitalization and medication changes Thank you for allowing me to participate in this patient's care. Please call with any questions. Will continue to follow. Lab Results Lab results reviewed: Yes 12/05/24 14:30 12/05/24 14:30 Diagnostic Imaging Results Diagnostic Imaging Results: positive Final report reviewed
[2024-12-06] MEDS: BUPRENORPHINE/NALOXONE 8-2 MG TAB SL SCH (12:44)
--- NOTE | 2024-12-06 13:38 | PROVIDER PROGRESS NOTE ---
Subjective Prog Note Date Prog Note Date: 12/06/24 Prog Note Time: 13:25 Subjective Pt reports feeling: Improved Subjective: POD #1 s/p LSC R oophorectomy after presenting with severe RLQ pain and possible intermittent ovarian torsion (second LSC in 2 days). Surgery was uncomplicated, and ROV was removed as planned in order to eliminate intermittent torsion as a source for ongoing pain. She stayed overnight after surgery in order to optimize patient mgmt. Overnight, she received oxycodone 10 mg + Fentanyl for break-through. She also received an IM Morphine dose of 15 mg. She states her presenting RLQ pain is mostly better and now she's trying to control postop/incisional pain. No nausea or vomiting and tolerating regular diet well. Current Medications Current Medications Current Medications: Current Medications Generic Name Dose Route Start Last Admin Trade Name Freq PRN Reason Stop Dose Admin Acetaminophen 975 mg 12/06/24 09:39 12/06/24 10:32 Acetaminophen 325 Mg Tablet PO 975 mg Q8HR JOHNSON Administration Diphenhydramine HCl 25 mg 12/06/24 09:44 Diphenhydramine 25 Mg Capsule PO Q8HR PRN Insomnia Famotidine 20 mg 12/06/24 08:21 12/06/24 09:07 Famotidine 20 Mg/2 Ml Vial IVP 20 mg BID PRN Administration GERD symptoms Gabapentin 100 mg 12/06/24 10:00 12/06/24 10:32 Gabapentin 100 Mg Capsule PO 100 mg TID JOHNSON Administration Hydromorphone HCl 6 mg 12/06/24 09:37 12/06/24 11:09 Hydromorphone 2 Mg Tablet PO 6 mg Q4HR PRN Administration Severe Pain (Level 7-10) Lactated Ringer's 1,000 mls @ 100 mls/hr 12/05/24 22:00 12/06/24 12:45 Lr IV 100 mls/hr .Q10H JOHNSON Administration Ibuprofen 600 mg 12/06/24 14:00 Ibuprofen 600 Mg Tablet PO Q8HR JOHNSON Ondansetron HCl 4 mg 12/05/24 21:15 12/06/24 08:23 Ondansetron 4 Mg/2 Ml Vial IVP 4 mg Q6HR PRN Administration Nausea / Vomiting Polyethylene Glycol 17 gm 12/05/24 22:18 12/06/24 08:23 Polyethylene Glycol 3350 17 Gm Packet PO 17 gm DAILY PRN Administration Bowel Protocol Objective Vital Signs/Intake & Output Reviewed Vital Signs: Yes Vital Signs: Vital Signs x48h Temp Pulse Resp BP Pulse Ox 12/06/24 12:28 37 C 80 16 119/80 95 12/06/24 10:30 73 106/70 12/06/24 07:33 36.6 C 66 16 106/62 98 Intake & Output: Intake & Output 12/03/24 12/04/24 12/05/24 12/06/24 23:59 23:59 23:59 23:59 Intake Total 1100 / 1100 2690 / 2690 Output Total 150 / 150 Balance 950 / 950 2690 / 2690 Weight (kg) 75.7 kg Objective General Appearance: positive No acute distress (Sitting up in bed eating and appears comfortable despite 7/10 pain) and Alert Respiratory: positive No respiratory distress Cardiovascular: positive Regular rate & rhythm Abdomen: positive No distention and Tenderness (At incision sites; minimal at RLQ) Skin: positive Color nml and Other (LSC incisions present x 3 - umbilical incision with inferior bruising (stable); 2 LLQ incisions well-approximated with skin adhesive in place; no separation, discharge, or erythema.) Extremities: positive Non-tender, Full ROM and Nml appearance Neurologic/Psychiatric: positive Oriented x3, Motor nml, Sensation nml and Mood/affect nml Lab Results 12/05/24 14:30 12/05/24 14:30 Other Labs: Lab Results x24hrs 12/05/24 12/05/24 Range/Units 14:39 14:30 WBC 9.0 (4.8-10.8) x10^3/uL RBC 4.63 (4.20-5.40) 10^6/uL Hgb 12.6 (12.0-16.0) g/dL Hct 40.2 (37.0-47.0) % MCV 86.8 (81.0-99.0) fL MCH 27.2 (27.0-31.0) pg MCHC 31.3 L (32.0-36.0) g/dL RDW 15.6 H (12.0-15.0) % Plt Count 279 (130-450) 10^3/uL MPV 10.0 (7.9-10.8) fL Neut # (Auto) 6.0 (1.5-6.6) 10^3/uL Lymph # (Auto) 2.2 (1.5-3.5) 10^3/uL [place] # (Auto) 0.7 (0.0-1.0) 10^3/uL Eos # (Auto) 0.0 (0.0-0.7) 10^3/uL Baso # (Auto) 0.0 (0.0-0.1) 10^3/uL Absolute Nucleated RBC 0.00 x10^3/uL Nucleated RBC % 0.0 /100WBC Sodium 140 (135-145) mmol/L Potassium 3.4 L (3.5-4.5) mmol/L Chloride 110 (101-111) mmol/L Carbon Dioxide 25 (21-32) mmol/L Anion Gap 5.0 L (6-13) BUN 11 (6-20) mg/dL Creatinine 0.6 (0.6-1.3) mg/dL Estimated GFR (MDRD) 120 (>89) Glucose 88 (74-104) mg/dL Calcium 9.1 (8.5-10.3) mg/dL Total Bilirubin 0.2 (0.2-1.0) mg/dL AST 15 (10-42) IU/L ALT 10 (10-60) IU/L Alkaline Phosphatase 62 (42-121) IU/L Total Protein 6.4 (6.4-8.9) g/dL Albumin 4.1 (3.2-5.5) g/dL Globulin 2.3 (2.1-4.2) g/dL Albumin/Globulin Ratio 1.8 (1.0-2.2) Lipase 29 (11-82) U/L Urine Color YELLOW Urine Clarity CLEAR (CLEAR) Urine pH 6.0 (5.0-7.5) PH Ur Specific [place] 1.010 (1.002-1.030) Urine Protein NEGATIVE (NEGATIVE) mg/dL Urine Glucose (UA) NEGATIVE (NEGATIVE) mg/dL Urine Ketones NEGATIVE (NEGATIVE) mg/dL Urine Occult Blood NEGATIVE (NEGATIVE) Urine Nitrite NEGATIVE (NEGATIVE) Urine Bilirubin NEGATIVE (NEGATIVE) Urine Urobilinogen 0.2 (NORMAL) (NORMAL) E.U./dL Ur Leukocyte Esterase NEGATIVE (NEGATIVE) Ur Microscopic Review NOT INDICATED Urine Culture Comments NOT INDICATED Urine HCG, Qual NEGATIVE Assessment/Plan Problem List (1) Pelvic pain in female: Impression: POD #1 s/p LSC R oophorectomy for suspected intermittent ovarian torsion. No torsion seen at time of surgery, and ROV removed to eliminate potential intermittent torsing as source of pain. Preop pain is improved, and pt now struggling with postop pain control secondary to hx of DESTINY and use of Suboxone. - IM Hospitalist consulted to assist with titration of medications to improve pain mgmt: started Gabapentin 100 mg tid and oral Dilaudid. Toradol and oxycodone discontinued. Pt reports slight improvement with the Dilaudid. Will now plan to try doubling dose of Suboxone. - Cont routine postop care: encouraged ambulation, warm shower, regular diet. - Cont postop Observation status for now, and consider discharge home later today if pain is managed with oral medications. If care required for 24 hrs or more, will admit patient to Hospitalist service (for pain mgmt), and I will continue to see her for postop care/questions. - Plan discussed with Hospitalist team and patient, and all questions addressed. (2) Opioid dependence on maintenance agonist therapy, no symptoms:
[2024-12-06] MEDS: IBUPROFEN 600 MG TABLET PO SCH (13:57)
[2024-12-06] MEDS: BUPRENORPHINE HCL 8 MG PO SCH ×2 (15:02→21:08)
--- NOTE | 2024-12-06 16:46 | PHARMACY PROGRESS NOTE ---
Best Possible Medication History Admit Date and Time: Home Medications Medication Instructions Recorded Confirmed Type buprenorphine HCl 8 mg sublingual 8 mg sublingual QDAY 08/28/24 12/06/24 History tablet cholecalciferol (vitamin D3) 50 50 mcg PO QDAY #90 caps 11/18/24 12/06/24 Rx mcg (2,000 unit) capsule drospirenone (contraceptive) 4 mg 1 tab PO QDAY #84 tabs 11/18/24 12/06/24 Rx (28) tablet (Slynd) levothyroxine 125 mcg tablet 125 mcg PO QDAY #90 tabs 11/18/24 12/06/24 Rx (Synthroid) omega 7-tjl-lny-fish oil 300 2 cap PO BID #240 caps 11/18/24 12/06/24 Rx mg-1,000 mg capsule (Fish Oil) vitamins no.154-ferrous 1 tab PO .daily #90 tabs 11/18/24 12/06/24 Rx fumarate 27 mg-folic acid 1 mg tablet sertraline 50 mg tablet (Zoloft) 50 mg PO QDAY #90 tabs 11/18/24 12/06/24 Rx naproxen 500 mg tablet 500 mg PO BID 12/06/24 12/06/24 History Processed by: Pharmacy Medications reviewed in ED?: No Medication History completed: Yes Patient Interview: Completed Secondary Source(s): Insurance records [facility] Statement: Per patient phone interview with RN and pharmacist, PDMP lookup, and review of [employer] insurance records. As the person ultimately responsible for medication therapy, providers are able to order a medication from an existing home medication list in [facility] via the "Reconcile Routine" prior to Confirmation of that medication by sales support manager. Such practice is discouraged except when the physician, in their clinical judgment, deems that a medical need exists for a medication without regard to previous use.
--- NOTE | 2024-12-06 16:47 | PHARMACY PROGRESS NOTE ---
Best Possible Medication History Admit Date and Time: Home Medications Medication Instructions Recorded Confirmed Type buprenorphine HCl 8 mg sublingual 8 mg sublingual QDAY 08/28/24 12/06/24 History tablet cholecalciferol (vitamin D3) 50 50 mcg PO QDAY #90 caps 11/18/24 12/06/24 Rx mcg (2,000 unit) capsule drospirenone (contraceptive) 4 mg 1 tab PO QDAY #84 tabs 11/18/24 12/06/24 Rx (28) tablet (Slynd) levothyroxine 125 mcg tablet 125 mcg PO QDAY #90 tabs 11/18/24 12/06/24 Rx (Synthroid) omega 4-gmk-qtc-fish oil 300 2 cap PO BID #240 caps 11/18/24 12/06/24 Rx mg-1,000 mg capsule (Fish Oil) vitamins no.154-ferrous 1 tab PO .daily #90 tabs 11/18/24 12/06/24 Rx fumarate 27 mg-folic acid 1 mg tablet sertraline 50 mg tablet (Zoloft) 50 mg PO QDAY #90 tabs 11/18/24 12/06/24 Rx naproxen 500 mg tablet 500 mg PO BID 12/06/24 12/06/24 History Processed by: Pharmacy Medications reviewed in ED?: No Medication History completed: Yes Secondary Source(s): Pharmacy records and Insurance records [facility] Statement: As the person ultimately responsible for medication therapy, providers are able to order a medication from an existing home medication list in [facility] via the "Reconcile Routine" prior to Confirmation of that medication by senior technical support engineer. Such practice is discouraged except when the physician, in their clinical judgment, deems that a medical need exists for a medication without regard to previous use.
[2024-12-06] MEDS: SERTRALINE 50 MG TABLET PO SCH (21:09)
[2024-12-06] MEDS: HYDROmorphone 0.5 MG/0.5 ML SYRINGE IVP ONE (23:03)
[2024-12-07] MEDS: fentaNYL 100 MCG/2 ML VIAL IVP ONE (02:09)
[2024-12-07] MEDS: LEVOTHYROXINE 125 MCG TABLET PO SCH (08:12)
[2024-12-07] MEDS ORDERED: FAMOTIDINE 20 MG TABLET PO PRN (09:53)
--- NOTE | 2024-12-07 11:35 | PROVIDER PROGRESS NOTE ---
Subjective Prog Note Date Prog Note Date: 12/07/24 Prog Note Time: 11:36 Subjective Pt reports feeling: Improved Subjective: POD #2 s/p LSC R oophorectomy after presenting with severe RLQ pain and possible intermittent ovarian torsion (second LSC in 2 days). Patient admitted yesterday evening [place] [facility] [facility] continue pain mgmt efforts. She is doing better with Gabapentin, oral Dilaudid, and increased Suboxone dosing. She has also continued Tylenol and Motrin. She started having some vaginal bleeding yesterday afternoon and night. Bleeding has been similar a menstrual period. She has been ambulaing, voiding, and tolerating a regular diet. Current Medications Current Medications Current Medications: Current Medications Generic Name Dose Route Start Last Admin Trade Name Freq PRN Reason Stop Dose Admin Acetaminophen 975 mg 12/06/24 09:39 12/07/24 04:31 Acetaminophen 325 Mg Tablet PO 975 mg Q8HR JOHNSON Administration Diphenhydramine HCl 25 mg 12/06/24 09:44 Diphenhydramine 25 Mg Capsule PO Q8HR PRN Insomnia Famotidine 20 mg 12/07/24 09:53 Famotidine 20 Mg Tablet PO BID PRN GERD symptoms Gabapentin 100 mg 12/06/24 10:00 12/07/24 04:32 Gabapentin 100 Mg Capsule PO 100 mg TID JOHNSON Administration Hydromorphone HCl 6 mg 12/06/24 09:37 12/07/24 08:35 Hydromorphone 2 Mg Tablet PO 6 mg Q4HR PRN Administration Severe Pain (Level 7-10) Ibuprofen 600 mg 12/06/24 14:00 12/07/24 04:31 Ibuprofen 600 Mg Tablet PO 600 mg Q8HR JOHNSON Administration Levothyroxine Sodium 125 mcg 12/07/24 07:00 12/07/24 08:12 Levothyroxine 125 Mcg Tablet PO 125 mcg QDAC JOHNSON Administration Ondansetron HCl 4 mg 12/05/24 21:15 12/07/24 09:10 Ondansetron 4 Mg/2 Ml Vial IVP 4 mg Q6HR PRN Administration Nausea / Vomiting Buprenorphine Hcl 1 each 12/06/24 21:00 12/07/24 08:35 8mg Sl Tab PO 1 each BID JOHNSON Administration Protocol Polyethylene Glycol 17 gm 12/05/24 22:18 12/07/24 08:12 Polyethylene Glycol 3350 17 Gm Packet PO 17 gm DAILY PRN Administration Bowel Protocol Sertraline HCl 50 mg 12/06/24 21:00 12/06/24 21:09 Sertraline 50 Mg Tablet PO 50 mg NIGHTLY JOHNSON Administration Objective Vital Signs/Intake & Output Reviewed Vital Signs: Yes Vital Signs: Vital Signs x48h Temp Pulse Resp BP Pulse Ox 12/07/24 08:01 36.5 C 73 16 117/81 100 12/07/24 04:30 36.4 C L 76 16 124/79 99 Intake & Output: Intake & Output 12/04/24 12/05/24 12/06/24 12/07/24 23:59 23:59 23:59 23:59 Intake Total 1100 / 1100 5340 / 5340 1818 / 1818 Output Total 150 / 150 200 / 200 Balance 950 / 950 5340 / 5340 1618 / 1618 Weight (kg) 75.7 kg 75.7 kg Objective General Appearance: positive No acute distress and Alert Respiratory: positive No respiratory distress Cardiovascular: positive Regular rate & rhythm Abdomen: positive Tenderness (Mild, april at site of umbilical incision; no RLQ tenderness as previously noted on admission) Skin: positive Other (Incisions (LSC x 3): umbilical incision with stable bruising and mild induration (stable since preop); 2 LLQ incision healing well with no erythema, discharge, or separation.) Extremities: positive Non-tender, Full ROM and Nml appearance Neurologic/Psychiatric: positive Oriented x3, Motor nml, Sensation nml and Mood/affect nml Lab Results 12/05/24 14:30 12/05/24 14:30 Assessment/Plan Problem List (1) Pelvic pain in female: Impression: POD #2 s/p LSC R oophorectomy for suspected intermittent ovarian torsion. No torsion seen at time of surgery, and ROV removed to eliminate potential intermittent torsing as source of pain. Preop pain is improved, and pt now struggling with postop pain control secondary to hx of DESTINY and use of Suboxone. - Care transitioned to Hospitalist yesterday, and greatly appreciate their consult and expertise. - Plan for discharge home later today once ride is available. - Discharge pain meds per Hospitalist. - Reviewed postop precautions and limitations. - Encouraged pt to call [facility] to schedule f/u with Dr. Rivera in 1-2 wks. (2) Opioid dependence on maintenance agonist therapy, no symptoms: (3) Vaginal bleeding: Impression: Current bleeding is not heavy. Suspect this is likely first menses since delivery 3 months ago. OK for tampon use if desired.
[2024-12-07] MEDS ORDERED: ONDANSETRON ODT 4 MG TABLET TL PRN (12:56)
[2024-12-07 13:02] VITALS: TEMP 97.9
[2024-12-07 16:12] VITALS: BP 104/62; O2SAT 96
--- NOTE | 2024-12-07 16:39 | Discharge Summary ---
Discharge Summary Admit Date: 12/05/24 Discharge Date: 12/07/24 Discharging Provider: Sivakumar Cutler MD DIAGNOSES Admission Diagnoses: 1. pelvic pain in female 2. rule out ovarian torsion 3. opioid dependence on maintenance agonist therapy Discharge Diagnoses with Status of Each Condition: 1. pelvic pain in female 2. suspected intermittent ovarian torsion 3. POD #2 s/p LSC R oophrectomy 4. opioid dependence on maintenance agonist therapy HPI History of Present Illness: 29 yo F with pmhx of opioid use disorder on buprenorphine, , ovarian torsion 10 yrs ago, appendectomy 10 yrs ago, admitted for RLQ pain and concern for ovarian torsion. She was admitted by CCNA and underwent laparoscopic Right oophrectomy on 12/05/24. Ovary appeared normal per OB. Medicine was consulted for post op pain management. Pt noted she became addicted to prescription opioids after a surgery several years ago and was subsequently switched to buprenorphine. She follows with [facility] in [place] for OUD. She was seen at OSH 2 days prior and underwent larososcpy with R fallopian tube removal at that time. post op pt was treated with iv tylenol, iv ketorolac, fentanyl, morphine, oxycodone. She noted ketorolc helped a little for short period of time. Fentanyl took the pain away for around 5 min. oxycodone 10mg helped a little but effect also wore off quickly. She remained in severe pain, which was in the location more of surgical incisions. Preoperative RLQ pain ipmroved. She received ketamine in the ED and states this is the only medicine that has helped her pain. HOSPITAL COURSE Hospital Course: 1. pelvic pain in female 2. suspected intermittent ovarian torsion 3. POD #2 s/p LSC R oophrectomy 4. opioid dependence on maintenance agonist therapy The pt was transferred to hospitalist service on POD 1 for pain control in setting of chronic buprenorphine use. The pt was started on po hydromorphone, which helped some. Given persistent pain, the pt's buprenorphine was doubled to 8 mg BID (home regimen is 8 mg q day). She was also started on a non-opioid regimen of gabapentin, scheduled tylenol, scheduled ibuprofen. With these treatment the pt's pain was brought to a tolerable level by morning of discharge POD 2. She was tolerating some po intake and passing flatus. CCNA cleared her for discharge. She was instructed to continue higher buprenorphine dose for 3 days, then return to 8 mg daily schedule. She was prescribed a short ( 3 day/12 doses) of dilaudid for breakthrough pain. Pt was counseled on the risks of overdose on high doses of opioids. She was instructed to stop while on high doses, or monitor closely for signs of sedation, irritability. Given the nature of the procedure she had, a prolonged period of severe postoperative pain would be very unusual. She should return to prior buprenorphine schedule very soon. I discussed the case with Dr. Lugo. Will call pt's pain/addiction clinic on Sunday to notify them of admission and arrange close follow up for refills and ongoing OUD care- [facility] in [place] ALLERGIES Allergies Allergy/AdvReac Type Severity Reaction Status Date / Time haloperidol Allergy Severe Unknown Verified 12/05/24 13:08 metoclopramide Allergy Severe Hallucinati Verified 12/05/24 13:08 ons prochlorperazine Allergy Severe Hallucinati Verified 12/05/24 13:08 ons Iodinated Contrast Media Allergy Mild Itching Verified 12/05/24 13:08 amoxicillin Allergy Hives Verified 12/05/24 13:08 azithromycin Allergy Unknown Verified 12/05/24 13:08 clavulanic acid (From Allergy Hives Verified 12/05/24 13:08 Augmentin) fluoxetine Allergy Unknown Verified 12/05/24 13:08 vancomycin Allergy Unknown Verified 12/05/24 13:08 naloxone AdvReac Intermediate vomit Verified 12/06/24 12:26 MEDICATIONS Ambulatory Orders Medication Instructions Recorded Confirmed buprenorphine HCl 8 mg sublingual 8 mg sublingual QDAY 08/28/24 12/06/24 tablet cholecalciferol (vitamin D3) 50 50 mcg PO QDAY #90 caps 11/18/24 12/06/24 mcg (2,000 unit) capsule drospirenone (contraceptive) 4 mg 1 tab PO QDAY #84 tabs 11/18/24 12/06/24 (28) tablet (Slynd) levothyroxine 125 mcg tablet 125 mcg PO QDAY #90 tabs 11/18/24 12/06/24 (Synthroid) omega 8-xfz-ejz-fish oil 300 2 cap PO BID #240 caps 11/18/24 12/06/24 mg-1,000 mg capsule (Fish Oil) vitamins no.154-ferrous 1 tab PO .daily #90 tabs 11/18/24 12/06/24 fumarate 27 mg-folic acid 1 mg tablet sertraline 50 mg tablet (Zoloft) 50 mg PO QDAY #90 tabs 11/18/24 12/06/24 naproxen 500 mg tablet 500 mg PO BID 12/06/24 12/06/24 acetaminophen 325 mg tablet 975 mg (3 x 325 mg) PO Q8HR #60 12/07/24 tabs gabapentin 100 mg capsule 100 mg PO TID #90 caps 12/07/24 hydromorphone 2 mg tablet 6 mg (3 x 2 mg) PO Q4HR PRN Severe 12/07/24 Pain (Level 7-10) #36 tabs ondansetron 4 mg disintegrating 4 mg PO Q8H PRN nausea and 12/07/24 tablet vomiting #20 tabs PHYSICAL EXAM AT DISCHARGE Vital Signs: Vital Signs x48h Temp Pulse Resp BP Pulse Ox 12/07/24 16:10 36.6 C 75 18 104/62 96 12/07/24 12:59 36.6 C 83 16 107/72 99 Physical Exam Other/Comments: young woman lying in bed, comfortable appearing, sclera anicteric, MMM LCTAB, nonlabored RRR, S1S2, no edema abd soft, larosocopy wound c/d/i, mild diffuse tenderness, no guarding, BS+ AAOx3, no tremor, strength 5/5 UE and LE bilat LABS 12/05/24 14:30 12/05/24 14:30 DIAGNOSTIC IMAGING Diagnostic Imaging Results Comments: pelvic/transvaginal US, 12/05/24: FINDINGS: Uterus: Uterus is anteverted and normal in size at 10.4 x 3.8 x 5.7 cm. The myometrium is homogeneous. The endometrium measures 7.4 mm in combined thickness. Ovaries: The right ovary measures 2.4 x 1.5 x 1.7 cm, with a calculated ovarian volume of 3.1 cc. The left ovary measures 2.1 x 1.7 x 1.3 cm, with a calculated ovarian volume of 2.3 cc. Appropriate blood flow to the left ovary Doppler interrogation. Evaluation of the right ovary is limited secondary to location, however some blood flow was detected. Less than 12 follicles can be seen in each ovary. No adnexal masses are seen. No cystic lesions measuring greater than 3 cm. Other: No pathologic free abdominal or pelvic fluid. IMPRESSION: Limited evaluation of the right ovary due to location, however some blood flow is detected. Left ovary is normal in appearance with flow. TIME SPENT Time Spent in Discharge (Minutes): 25 Discharge Plan Discharge Patient Disposition: 01 Home, Self Care Condition: Stable Medically Cleared Date:: 12/07/24 Prescriptions: New acetaminophen 325 mg Tablet 975 mg PO Q8HR Qty: 60 0RF gabapentin 100 mg Capsule 100 mg PO TID Qty: 90 0RF hydromorphone 2 mg Tablet 6 mg PO Q4HR PRN (Reason: Severe Pain (Level 7-10)) Qty: 36 0RF ondansetron 4 mg tablet,disintegrating 4 mg PO Q8H PRN (Reason: nausea and vomiting) Qty: 20 0RF Continued naproxen 500 mg tablet 500 mg PO BID Patient Comments: TAKE 1 TABLET BY MOUTH THREE TIMES DAILY NEEDED FOR PAIN Slynd 4 mg (28) tablet 1 tab PO QDAY Qty: 84 1RF PNV no.154-iron fumarate-folic 27 mg iron- 1 mg tablet 1 tab PO .daily Qty: 90 4RF cholecalciferol (vitamin D3) 50 mcg (2,000 unit) capsule 50 mcg PO QDAY Qty: 90 4RF sertraline [Zoloft] 50 mg tablet 50 mg PO QDAY Qty: 90 3RF omega 8-kxr-dpc-fish oil [Fish Oil] 300-1,000 mg capsule 2 cap PO BID Qty: 240 6RF levothyroxine [Synthroid] 125 mcg tablet 125 mcg PO QDAY Qty: 90 3RF buprenorphine HCl 8 mg tablet, sublingual 8 mg sublingual QDAY Activity Restrictions/Additional Instructions: No heavy lifting, exercise, sexual intercourse for 2 weeks. Care for surgical wounds as instructed. Monitor for any signs of drainage, pus, or redness around surgical wounds and contact your CCNA provider or return to the hospital if these things occur. Diet: Regular Plan of Treatment: For pain control, increase your dose of buprenorphine (subutex) to 8 mg twice daily for 3 days. Then return to your standard dose of 8 mg once daily. We have also prescribed a short course of hydromorphone (dilaudid) for breakthrough pain. Continue gabapentin, tylenol, and napoxen until pain improves. We will contact your clinic on Sunday to discuss these medication changes. Contact your primary care provider or return to the hospital is you have increased abdominal pain, prolonged vomiting, difficulty eating and drinking, bleeding, fever, lightheadedness, or for any other concerns. Print Language: Burmese Patient Instructions: Surgery Anesthesia After, Laparoscopy Pelvic Reasons Stand Alone Forms: PCP List Follow-up Care: Tanisha Rivera MD [Provider Admit Priv/Credential] - 1 Week (Call [facility] to schedule postop visit in 1-2 wks)
--- NOTE | 2024-12-09 11:31 | ANESTHESIA PROCEDURE NOTE ---
Pre-Anesthesia VS, & Labs Diagnosis Surgical Diagnosis:: possible ovarian torsion Procedure Procedure: oophorectomy Vitals Vital Signs: Temp Pulse Resp BP Pulse Ox 36.6 C 75 18 104/62 96 12/07/24 16:10 12/07/24 16:10 12/07/24 16:10 12/07/24 16:10 12/07/24 16:10 NPO NPO: >8 hours Is Patient ?: No Lab Results Current Lab Results: Laboratory Tests 12/05/24 14:30: WBC 9.0, RBC 4.63, Hgb 12.6, Hct 40.2, MCV 86.8, MCH 27.2, MCHC 31.3 L, RDW 15.6 H, Plt Count 279, MPV 10.0, Neut # (Auto) 6.0, Lymph # (Auto) 2.2, [place] # (Auto) 0.7, Eos # (Auto) 0.0, Baso # (Auto) 0.0, Absolute Nucleated RBC 0.00, Nucleated RBC % 0.0, Sodium 140, Potassium 3.4 L, Chloride 110, Carbon Dioxide 25, Anion Gap 5.0 L, BUN 11, Creatinine 0.6, Estimated GFR (MDRD) 120, Glucose 88, Calcium 9.1, Total Bilirubin 0.2, AST 15, ALT 10, Alkaline Phosphatase 62, Total Protein 6.4, Albumin 4.1, Globulin 2.3, Albumin/Globulin Ratio 1.8, Lipase 29 12/05/24 14:30 12/05/24 14:30 Meds/Allgy Home Medications Ambulatory Orders Medication Instructions Recorded Confirmed buprenorphine HCl 8 mg sublingual 8 mg sublingual QDAY 08/28/24 12/06/24 tablet cholecalciferol (vitamin D3) 50 50 mcg PO QDAY #90 caps 11/18/24 12/06/24 mcg (2,000 unit) capsule drospirenone (contraceptive) 4 mg 1 tab PO QDAY #84 tabs 11/18/24 12/06/24 (28) tablet (Slynd) levothyroxine 125 mcg tablet 125 mcg PO QDAY #90 tabs 11/18/24 12/06/24 (Synthroid) omega 4-ses-ogm-fish oil 300 2 cap PO BID #240 caps 04/01/25 04/19/25 mg-1,000 mg capsule (Fish Oil) vitamins no.154-ferrous 1 tab PO .daily #90 tabs 11/18/24 12/06/24 fumarate 27 mg-folic acid 1 mg tablet sertraline 50 mg tablet (Zoloft) 50 mg PO QDAY #90 tabs 11/18/24 12/06/24 naproxen 500 mg tablet 500 mg PO BID 12/06/24 12/06/24 acetaminophen 325 mg tablet 975 mg (3 x 325 mg) PO Q8HR #60 12/07/24 tabs gabapentin 100 mg capsule 100 mg PO TID #90 caps 12/07/24 hydromorphone 2 mg tablet 6 mg (3 x 2 mg) PO Q4HR PRN Severe 12/07/24 Pain (Level 7-10) #36 tabs ondansetron 4 mg disintegrating 4 mg PO Q8H PRN nausea and 12/07/24 tablet vomiting #20 tabs Allergies Allergies Allergy/AdvReac Type Severity Reaction Status Date / Time haloperidol Allergy Severe Unknown Verified 12/05/24 13:08 metoclopramide Allergy Severe Hallucinati Verified 12/05/24 13:08 ons prochlorperazine Allergy Severe Hallucinati Verified 12/05/24 13:08 ons Iodinated Contrast Media Allergy Mild Itching Verified 12/05/24 13:08 amoxicillin Allergy Hives Verified 12/05/24 13:08 azithromycin Allergy Unknown Verified 12/05/24 13:08 clavulanic acid (From Allergy Hives Verified 12/05/24 13:08 Augmentin) fluoxetine Allergy Unknown Verified 12/05/24 13:08 vancomycin Allergy Unknown Verified 12/05/24 13:08 naloxone AdvReac Intermediate vomit Verified 12/06/24 12:26 PFSH Active Problems All Active Problems (Updated 12/08/24 @ 00:00 by ) Vaginal bleeding (Acute) Nausea (Acute) Pelvic pain in female (Acute) Mixed anxiety and depressive disorder (Acute) Delmy thyroiditis (Acute) At risk for breast cancer (Acute) Opioid dependence on maintenance agonist therapy, no symptoms (Acute) Hypothyroid (Acute) Medical History Medical History IUD failure, (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 History of hyperemesis gravidarum lost 30 pounds in beginning of 3rd Supraventricular tachycardia now resolved. Surgical History Surgical History History of repair of ACL History of tonsillectomy History of appendectomy History of cholecystectomy History of delivery (02/16/22) Family History Family History (Updated 08/21/24 @ 08:51 by Fay Flaherty, RN) Father Alcoholism Anxiety Maternal grandmother COPD (chronic obstructive pulmonary disease) Lupus (systemic lupus erythematosus) Rheumatoid arthritis Maternal grandfather Diabetes High blood pressure Mother High blood pressure Lupus (systemic lupus erythematosus) Malignant melanoma Rheumatoid arthritis Thyroid disease Brother Seizure Social History Social History (Updated 08/19/24 @ 15:58 by Fay Flaherty RN) Smoking Status: Never smoker Level: Independent Do you feel safe in your home environment?: Yes Suffered physical, verbal, emotional, or financial abuse?: No POLST Patient has POLST: No POLST Status: Full Code Anesthesia Exam (Expanded) Exam General: Alert and Oriented x3 Dental: WNL Mouth Openin Fingerbreadth Neck Mobility: Normal Mallampati classification: I Thyromental Distance: 4-6 cm Respiratory: Lungs clear Cardiovascular: Regular rate Plan Problem List (1) Pelvic pain in female: (2) Opioid dependence on maintenance agonist therapy, no symptoms: (3) Vaginal bleeding: Plan Assessment: 1. Post-operative abdominal pain 2. opioid use disorder on buprenorphine 3. POD 1 laparoscopic Right oophrectomy Acute pain control is more complicated in patients on chronic buprenorphine given partial agonism effects of this medication. Options include higher doses of short acting opioids and increased doses of buprenorphine. In patients with severe uncontrolled pain, stopping buprenorphine for a short time is sometimes required. It does not appear this pt has a post operative complication. Abdomen exam in non-acute, VSS, non-toxic appearing. Will add non-opioid analgesics as well for multi-modal pain regimen and attempt to limit course of short acting opioids as much as possible. Tried dilaudid 6 mg po this am with little effect. Recommendations: - increase buprenorphine SL dose to 8 mg BID (home dose 8 mg q hs). Pt provided home supply and it was given to our pharmacy to verify and dispense. - gabapentin 100 mg po TID - scheduled tylenol 975 q 8 hrs - scheduled ibuprofen 600 mg q 8 hrs - stopped oxycodone, ketorolac, fentanyl, iv tylenol - if pain uncontrolled on current regimen, consider higher doses of po or iv hydromorphone - will call her pain/addiction clinic on Sunday to inform them of hospitalization and medication changes Thank you for allowing me to participate in this patient's care. Please call with any questions. Will continue to follow. Plan Anesthesia Type: General Consent for Procedure(s) Verified and Reviewed: Yes Code Status: Attempt Resuscitation ASA Classification ASA classification: 2-Mild systemic disease Is this case an emergency?: Yes
== END 2024-12-07 18:03 | disposition home or self-care (01) ==
LOC: ED 13:03 → MS2 17:26 → SDS 17:26 → MS2 19:37
PROVIDERS: ADMIT Physician Assistant Medical; ATTEND Obstetrics & Gynecology
PROC: [UNRECOGNIZED PROCEDURE] (2024-12-05 19:00)

== ENCOUNTER 2025-01-23 11:29 | Inpatient (IN) ==
--- NOTE | 2025-01-23 12:14 | ED Physician Documentation ---
History of Present Illness Stated complaint Stated Complaint: LT SD PELV PX Chief complaint Chief Complaint: Abd Pain History obtained from History obtained from: Patient Additonal information Additional information: 29-year-old female presents the emergency department 5 days of intermittent left pelvic pain. States feels similar to the ovarian torsion that she had on the right side. No fevers or chills. No vomiting. Has had constipation but no diarrhea. She saw gynecology today and was sent here for ultrasound and further evaluation. Patient had a CT scan a few days ago and an ultrasound a few days a go as well. She states the pain is becoming more constant but has been intermittent. Review of Systems Constitutional Denies: Fever or Chills Ears, nose, mouth, and throat Denies: Neck pain Musculoskeletal Denies: Neck pain Meds/Allgy Home Medications Ambulatory Orders Medication Instructions Recorded Confirmed buprenorphine HCl 8 mg sublingual 8 mg sublingual QDAY 08/28/24 01/23/25 tablet drospirenone (contraceptive) 4 mg 1 tab PO QDAY #84 ta bs 11/18/24 01/23/25 (28) tablet (Slynd) levothyroxine 125 mcg tablet 125 mcg PO QDAY #90 tabs 01/12/25 01/23/25 (Synthroid) sertraline 50 mg tablet (Zoloft) 100 mg (2 x 50 mg) PO QDAY #180 01/12/25 01/23/25 tabs naloxone 4 mg/actuation nasal spray 1 spray intranasal ONCE PRN opioid 01/13/25 01/23/25 overdose bisacodyl 10 mg rectal suppository 10 mg MI DAILY PRN constipation 01/20/25 01/23/25 (Dulcolax (bisacodyl)) #12 ea Allergies Allergies Allergy/AdvReac Type Severity Reaction Status Date / Time amoxicillin Allergy Severe Hives Verified 01/23/25 12:53 clavulanic acid (From Allergy Severe Hives Verified 01/23/25 12:53 Augmentin) haloperidol Allergy Severe Unknown Verified 01/23/25 12:53 metoclopramide Allergy Severe Hallucinati Verified 01/23/25 12:53 ons prochlorperazine Allergy Severe Hallucinati Verified 01/23/25 12:53 ons fluoxetine Allergy Intermediate heartburn Verified 01/23/25 12:53 Iodinated Contrast Media Allergy Mild Itching Verified 01/23/25 12:53 vancomycin Allergy Mild flushing Verified 01/23/25 12:53 azithromycin Allergy GI issues Verified 01/23/25 12:53 naloxone AdvReac Intermediate vomit Verified 01/23/25 12:53 PFSH Active Problems All Active Problems (Updated 01/23/25 @ 12:55 by Sheldon Brown MD) Constipation (Acute) Abdominal pain (Acute) Vomiting (Acute) Left lower quadrant pain (Acute) Pelvic pain in female (Acute) Sprain of left wrist (Acute) Abnormal CT scan (Acute) Anxiety and depression (Acute) Knee pain, chronic (Acute) Migraine with aura (Acute) Delmy thyroiditis (Acute) Opioid dependence on maintenance agonist therapy, no symptoms (Acute) Hypothyroid (Acute) Medical History Medical History Mixed anxiety and depressive disorder managed with Fluvoxamine till mid 3rd trimester with 3rd then stopped. prior used Zoloft up to 200 mg. At risk for breast cancer 20.2% Tyrer-Cuzlck risk Pelvic pain in female Nausea Vaginal bleeding problem IUD failure, (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 History of hyperemesis gravidarum lost 30 pounds in beginning of 3rd Supraventricular tachycardia now resolved. Surgical History Surgical History S/P abdominal hysterectomy and right salpingo-oophorectomy History of repair of ACL History of tonsillectomy History of appendectomy History of cholecystectomy History of delivery (02/16/22) Family History Family History (Updated 08/21/24 @ 08:51 by Fay Flaherty RN) Father Alcoholism Anxiety Maternal grandmother COPD (chronic obstructive pulmonary disease) Lupus (systemic lupus erythematosus) Rheumatoid arthritis Maternal grandfather Diabetes High blood pressure Mother High blood pressure Lupus (systemic lupus erythematosus) Malignant melanoma Rheumatoid arthritis Thyroid disease Brother Seizure Social History Social History Smoking Status: Current every day smoker Do you dip or chew tobacco?: No Do you vape?: Yes Living arrangement: At home Marital Status: Domestic Partner Living Condition: With spouse/s.o. 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 Patient has POLST: No POLST Status: Full Code Exam Exam Vital Signs: Vital Signs x48h Temp Pulse Resp BP Pulse Ox 01/23/25 12:39 81 124/87 98 01/23/25 12:03 36.4 C L 75 16 127/75 95 Constitutional normal general appearance and no apparent distress HENMT oropharynx normal moist mucous membranes Eyes PERRL Neck/C-Spine visual inspection normal Respiratory breath sounds equal bilaterally, normal respiratory effort and clear to auscultation bilaterally Cardiovascular normal heart rate noted and regular rhythm noted Gastrointestinal abdomen normal to inspection, abdomen soft to palpation and nondistended Tender to palpation left lower pelvis. No tenderness in the abdomen. No peritoneal signs. Genitourinary no CVA tenderness Extremities no edema Neurology speech normal Psychiatry mental status grossly normal and oriented x3 Skin skin color normal Results Vitals Vitals: Vital Signs - 24 hr 01/23/25 12:03 01/23/25 12:39 Temperature 36.4 C L Temperature Source Temporal Artery Scan Pulse Rate 75 81 Respiratory Rate 16 Blood Pressure 127/75 124/87 O2 Saturation 95 98 O2 Source Room air Room air Pain Intensity 8 8 Oxygen O2 Source Room air Labs Labs: Laboratory Tests 01/23/25 12:20 WBC 5.4 RBC 4.82 Hgb 13.4 Hct 42.0 MCV 87.1 MCH 27.8 MCHC 31.9 L RDW 13.2 Plt Count 260 MPV 10.2 Neut # (Auto) 3.3 Lymph # (Auto) 1.6 [place] # (Auto) 0.3 Eos # (Auto) 0.1 Baso # (Auto) 0.0 Absolute Nucleated RBC 0.00 Nucleated RBC % 0.0 Sodium 140 Potassium 3.8 Chloride 108 Carbon Dioxide 26 Anion Gap 6.0 BUN 14 Creatinine 0.7 Estimated GFR (MDRD) 100 Glucose 91 Calcium 9.3 Total Bilirubin 0.3 AST 13 ALT 10 Alkaline Phosphatase 66 Total Protein 7.1 Albumin 4.3 Globulin 2.8 Albumin/Globulin Ratio 1.5 Lipase 18 PD Medical Decision Making ED course Complexity details: reviewed results, re-evaluated patient, considered differential, d/w patient and d/w residential property consultant ED course: Pelvic ultrasound does not show any acute abnormalities. Laboratory testing does not show any other acute abnormalities as well. Given a dose of IV ketamine for pain. Helped her pain. Dr. Lugo, gynecology, came and evaluated the patient. Will plan on taking her to the OR. This document was made in part using voice recognition software. While efforts are made to proofread this document, sound alike and grammatical errors may occur. Discharge Plan Discharge Patient Disposition: ED Transfer to [facility] Condition: Stable Clinical Impression: Pelvic pain in female Prescriptions: No Action bisacodyl [Dulcolax (bisacodyl)] 10 mg suppository 10 mg MI DAILY PRN (Reason: constipation) Qty: 12 0RF Slynd 4 mg (28) tablet 1 tab PO QDAY Qty: 84 1RF levothyroxine [Synthroid] 125 mcg tablet 125 mcg PO QDAY Qty: 90 1RF sertraline [Zoloft] 50 mg tablet 100 mg PO QDAY Qty: 180 1RF Rx Instructions: Take 2 tablets daily naloxone 4 mg/actuation spray,non-aerosol 1 spray intranasal ONCE PRN (Reason: opioid overdose) Patient Comments: CALL 911. ADMINISTER A SINGLE SPRAY IN ONE NOSTRIL. REPEAT INTO THE OTHER NOSTRIL EVERY TWO TO THREE MINUTES UNTIL PATIENT RESPONDS OR UNTIL EMERGENCY MEDICAL ASSISTANCE ARRIVES buprenorphine HCl 8 mg tablet, sublingual 8 mg sublingual QDAY Patient Comments: Cherelle Santana [facility] option Tricia Nesbitt prescribes this medication Print Language: Irish Stand Alone Forms: PCP List
--- NOTE | 2025-01-23 12:16 | Ultrasound Report ---
PROCEDURE: US Pelvic w/Doppler Complete INDICATIONS: L pelvic pain, h/o r ovarian torsion+oopherectomy TECHNIQUE: Real-time scanning was performed of the pelvic organs, with image documentation. COMPARISON: 01/19/2025 and 01/20/2025. FINDINGS: Uterus: Uterus is anteverted and normal in size at 6.9 x 4.1 x 5.5 cm. The myometrium is homogeneous. The endometrium measures 10.35 mm in combined thickness. No endometrial mass or fluid. Ovaries: The right ovary is surgically absent. The left ovary measures 2.9 x 2.2 x 2.7 cm, with a calculated ovarian volume of 8.96 cc. Simple appearing cyst is noted in left ovary measures 1.8 x 2.5 x 1.7 cm in size. Less than 12 follicles can be seen in left ovary. No adnexal masses are seen. No cystic lesions measuring greater than 3 cm. Normal blood flow is seen in left ovary on color Doppler images. Other: No pathologic free abdominal or pelvic fluid. IMPRESSION: 1. Simple cyst in left ovary measures 2.5 x 1.7 x 1.8 cm in size. No solid- appearing ovarian lesion. No evidence of ovarian torsion. 2. Prior right oophorectomy. No of adnexal mass. 3. Normal-appearing uterus and endometrium. Reviewed by: Sulaiman Reddy MD on 01/23/2025 12:15 PM PDT Approved by: Sulaiman Reddy MD on 01/23/2025 12:15 PM PDT Station ID: [id number]
[2025-01-23 12:24] LABS: BASOPHILS % (AUTO) 0.4 %; EOSINOPHILS # (AUTO) 0.1 10^3/uL (0.0-0.7); EOSINOPHILS % (AUTO) 1.7 %; HGB - HEMOGLOBIN 13.4 g/dL (12.0-16.0); LYMPHOCYTES # (AUTO) 1.6 10^3/uL (1.5-3.5); LYMPHOCYTES % (AUTO) 29.7 %; MEAN CORPUSCULAR HEMOGLOBIN 27.8 pg (27.0-31.0); MEAN CORPUSCULAR HGB CONC 31.9 g/dL (32.0-36.0); MEAN CORPUSCULAR VOLUME 87.1 fL (81.0-99.0); MEAN PLATELET VOLUME 10.2 fL (7.9-10.8); MONOCYTES # (AUTO) 0.3 10^3/uL (0.0-1.0); MONOCYTES % (AUTO) 6.3 %; NEUTROPHILS # (AUTO) 3.3 10^3/uL (1.5-6.6); NEUTROPHILS % (AUTO) 61.5 %; PLT - PLATELET COUNT 260 10^3/uL (130-450); RED BLOOD COUNT 4.82 10^6/uL (4.20-5.40); RED CELL DISTRIBUTION WIDTH 13.2 % (12.0-15.0); WHITE BLOOD COUNT 5.4 x10^3/uL (4.8-10.8)
[2025-01-23 12:39] LABS: ALBUMIN 4.3 g/dL (3.2-5.5); ALBUMIN/GLOBULIN RATIO 1.5 (1.0-2.2); BILIRUBIN,TOTAL 0.3 mg/dL (0.2-1.0); CALCIUM 9.3 mg/dL (8.5-10.3); CREATININE 0.7 mg/dL (0.6-1.3); POTASSIUM 3.8 mmol/L (3.5-4.5); TOTAL PROTEIN 7.1 g/dL (6.4-8.9)
[2025-01-23] MEDS: SODIUM CHLORIDE 0.9% IV STA (12:41)
[2025-01-23] MEDS: KETAMINE IV STA (12:41)
[2025-01-23] MEDS ORDERED: LACTATED RINGERS 1,000 ML IV PRN (13:11)
[2025-01-23 13:13] LABS: BILIRUBIN,URINE NEGATIVE (NEGATIVE); GLUCOSE, URINE (UA) NEGATIVE (NEGATIVE); KETONES,URINE (UA) NEGATIVE (NEGATIVE); LEUKOCYTE ESTERASE, URINE NEGATIVE (NEGATIVE); NITRITE,URINE NEGATIVE (NEGATIVE); OCCULT BLOOD,URINE NEGATIVE (NEGATIVE); PROTEIN,URINE NEGATIVE (NEGATIVE); UROBILINOGEN,URINE 0.2 (NORMAL) E.U./dL (NORMAL)
[2025-01-23 13:14] LABS: CLARITY,URINE CLEAR (CLEAR)
[2025-01-23 13:16] LABS: HCG UR QUAL NEGATIVE
[2025-01-23] MEDS ORDERED: PROPOFOL 200 MG/20 ML VIAL IVP ONE (13:16)
[2025-01-23] MEDS ORDERED: MIDAZOLAM 2 MG/2 ML VIAL ONE (13:16)
[2025-01-23] MEDS ORDERED: KETAMINE 500 MG/10 ML VIAL ONE ×2 (13:16→15:04)
[2025-01-23] MEDS ORDERED: LIDOCAINE-PF 2% 10 ML AMP SUBQ ONE (13:16)
--- NOTE | 2025-01-23 13:18 | HISTORY & PHYSICAL EXAMINATION ---
Chief Complaint Chief Complaint Chief Complaint: Left pelvic pain CPT Codes:: 52519 Diagnostic laparoscopy History of Present Illness Admitted From Admitted From:: Emergency Room History Obtained From Records Reviewed: Outpatient, prior surgery/admission, and Radiology imaging History obtained from: Patient and chart Exam Limitations: None History of Present Illness HPI Comment/Other: Patient is a 29 yo , sent to the ER from clinic for 5-day hx of LLQ pelvic pain. She reports pain feels just like when she presented to the ER on 12/03- 12/05 and underwent LSC for suspected ovarian torsion. Findings at that time noted a non-torsed ovary twice. At the second surgery, the ovary was removed per patient desires given her persistent/recurring pain. Pathology noted some congestion that may be consistent with intermittent torsion. She then started having vaginal bleeding on POD #1 c/w her first menses since her delivery. With the current pain episode, she has had pain at the left side. It started as intermittent pain, 4/10 intensity, and has evolved into constant 8/10 pain. She reports + nausea with vomiting and inability to tolerate PO since yesterday (NPO since dinner yesterday). She was seen at [facility] ER 01/19 for the same complaint. Pelvic CT and US were obtained and noted only a small ROBERTO CARLOS corpus luteum cyst and + blood flow. She was sent home suspecting possible constipation vs premenstrual pelvic pain. She returns today concerned about losing her one remaining ovary if it possibly torsed. She has been trying to manage pain with Motrin and Tylenol with no improvement. She denies any narcotic pain meds other than usual Subutex dose (8mg/day). She reports pain is worse with activity. She denies fever; chills; vaginal discharge, itching, or irritation; or change in bowel or bladder. She acknowledges having chronic constipation due to Subutex but denies this severity of pain related. Last stool was yesterday. She is s/p LSC R oophorectomy on 12/05/2024 and LSC R salpingectomy (at [facility]) 12/03/2024). She also had a LSC appy 10 yrs ago and has no hx of urolithiasis. She has been trying to manage pain with Motrin, Tylenol, and hot/cold compresses with no improvement. She reports pain is worse with activity. She denies fever; chills; vaginal discharge, itching, or irritation; or change in bowel or bladder. She acknowledges having chronic constipation due to Suboxone but states she's never had pain like this before due to it. 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; only menses since vaginal delivery was 12/06/2024; denies other BOTANY TECHNICIAN hx; she is currently using Slynd for contraception OB Hx: A1; G1 - ; G2 - IOL for cholestasis, for NRFHT; G3 - cholestasis, 5 months ago (conceived with IUD) Meds/Allgy Home Medications Ambulatory Orders Medication Instructions Recorded Confirmed buprenorphine HCl 8 mg sublingual 8 mg sublingual QDAY 08/28/24 01/23/25 tablet drospirenone (contraceptive) 4 mg 1 tab PO QDAY #84 ta bs 11/18/24 01/23/25 (28) tablet (Slynd) levothyroxine 125 mcg tablet 125 mcg PO QDAY #90 tabs 01/12/25 01/23/25 (Synthroid) sertraline 50 mg tablet (Zoloft) 100 mg (2 x 50 mg) PO QDAY #180 01/12/25 01/23/25 tabs naloxone 4 mg/actuation nasal spray 1 spray intranasal ONCE PRN opioid 01/13/25 01/23/25 overdose bisacodyl 10 mg rectal suppository 10 mg [place] DAILY PRN constipation 01/20/25 01/23/25 (Dulcolax (bisacodyl)) #12 ea Allergies Allergies Allergy/AdvReac Type Severity Reaction Status Date / Time amoxicillin Allergy Severe Hives Verified 01/23/25 12:53 clavulanic acid (From Allergy Severe Hives Verified 01/23/25 12:53 Augmentin) haloperidol Allergy Severe Unknown Verified 01/23/25 12:53 metoclopramide Allergy Severe Hallucinati Verified 01/23/25 12:53 ons prochlorperazine Allergy Severe Hallucinati Verified 01/23/25 12:53 ons fluoxetine Allergy Intermediate heartburn Verified 01/23/25 12:53 Iodinated Contrast Media Allergy Mild Itching Verified 01/23/25 12:53 vancomycin Allergy Mild flushing Verified 01/23/25 12:53 azithromycin Allergy GI issues Verified 01/23/25 12:53 naloxone AdvReac Intermediate vomit Verified 01/23/25 12:53 PFSH Active Problems All Active Problems (Updated 01/23/25 @ 13:31 by Audra Hopkins CRNA) Constipation (Acute) Abdominal pain (Acute) Vomiting (Acute) Left lower quadrant pain (Acute) Pelvic pain in female (Acute) Sprain of left wrist (Acute) Abnormal CT scan (Acute) Anxiety and depression (Acute) Knee pain, chronic (Acute) Migraine with aura (Acute) Delmy thyroiditis (Acute) Opioid dependence on maintenance agonist therapy, no symptoms (Acute) Hypothyroid (Acute) Medical History Medical History (Updated 01/23/25 @ 13:31 by Audra Hopkins CRNA) Buprenorphine dependence Mixed anxiety and depressive disorder managed with Fluvoxamine till mid 3rd trimester with 3rd then stopped. prior used Zoloft up to 200 mg. At risk for breast cancer 20.2% Tyrer-Cuzlck risk Pelvic pain in female Nausea Vaginal bleeding problem IUD failure, (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 History of hyperemesis gravidarum lost 30 pounds in beginning of 3rd Supraventricular tachycardia now resolved. Surgical History Surgical History (Updated 01/23/25 @ 13:44 by Kate Lugo MD) History of right salpingo-oophorectomy History of repair of ACL History of tonsillectomy History of appendectomy History of cholecystectomy History of delivery (02/16/22) Family History Family History (Updated 08/21/24 @ 08:51 by Fay Flaherty RN) Father Alcoholism Anxiety Maternal grandmother COPD (chronic obstructive pulmonary disease) Lupus (systemic lupus erythematosus) Rheumatoid arthritis Maternal grandfather Diabetes High blood pressure Mother High blood pressure Lupus (systemic lupus erythematosus) Malignant melanoma Rheumatoid arthritis Thyroid disease Brother Seizure Social History Social History Smoking Status: Current every day smoker Do you dip or chew tobacco?: No Do you vape?: Yes Living arrangement: At home Marital Status: Domestic Partner Living Condition: With spouse/s.o. 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 Patient has POLST: No POLST Status: Full Code Review of Systems Status of ROS: 10 or more systems reviewed and unremarkable except as noted in history and below Prior Level of Functionality: No limitations Exam Exam Vital Signs: Vital Signs x48h Temp Pulse Resp BP Pulse Ox 01/23/25 12:54 70 22 121/83 95 01/23/25 12:39 81 124/87 98 01/23/25 12:03 36.4 C L 75 16 127/75 95 Constitutional normal general appearance HENMT normocephalic and head/scalp atraumatic Eyes PERRL and EOMs intact bilaterally Respiratory normal respiratory effort Cardiovascular normal heart rate noted and peripheral pulses 2+ throughout Gastrointestinal abdomen soft to palpation and nondistended Tender at LLQ; suprapubic pressure refers pain to LLQ; + mild rebound and guarding Genitourinary Pelvic deferred today. Last exam on 12/05 was notable for tenderness at introitus and bilateral levators, R>L. Pain refers to RLQ during palpation. Extremities normal to inspection Neurology no movement abnormality noted, no focal motor deficit noted and no sensory deficits noted Psychiatry mental status grossly normal, oriented x3, thought process normal, cooperative and affect normal Skin skin color normal Prior incisions x 3 present on abdomen Conclusion/Plan Problem List (1) Left lower quadrant pain: Plan: (1) Pelvic pain in female: Plan: 29 yo female with 5 days of LLQ pain, possible intermittent torsion. DDx also consists of premenstrual pain. US today notes normal-appearing ovary with 1.8 x 2.5 x 1.7 cm simple cyst and + flow. However, this does not completely exclude intermittent torsion. - Given pain severity and hx of RSO, patient is strongly desiring diagnostic LSC to eval and possibly untwist torsed ovary. Discussed high likelihood of normal findings, and pt understands this risk. If cyst also present, will plan for cystectomy. Reviewed surgical expectations and risks, including (but not limited to) bleeding, infection, injury to surrounding organs, postop scarring, postop pain, and anesthesia risks (heart attack, stroke, , blood clots). Consent reviewed and signed. - To OR tonight for LSC, R oophorectomy once OR team ready/assembled. (2) Ovarian torsion: (3) Opioid dependence on maintenance agonist therapy, no sympt (2) Opioid dependence on maintenance agonist therapy, no symptoms: Lab Results Lab results reviewed: Yes 01/23/25 12:20 01/23/25 12:20 Diagnostic Imaging Results Diagnostic Imaging Results: positive Final report reviewed
[2025-01-23] MEDS ORDERED: SODIUM CHLORIDE 0.9% 10 ML VIAL ONE ×2 (13:23→15:04)
--- NOTE | 2025-01-23 13:29 | ANESTHESIA PROCEDURE NOTE ---
Pre-Anesthesia VS, & Labs Diagnosis Surgical Diagnosis:: left ovarian torsion Procedure Procedure: diagnostic lap Vitals Vital Signs: Temp Pulse Resp BP Pulse Ox 36.4 C L 70 22 121/83 95 01/23/25 12:03 01/23/25 12:54 01/23/25 12:54 01/23/25 12:54 01/23/25 12:54 NPO NPO: >8 hours Is Patient ?: No Lab Results Current Lab Results: Laboratory Tests 01/23/25 12:20: WBC 5.4, RBC 4.82, Hgb 13.4, Hct 42.0, MCV 87.1, MCH 27.8, MCHC 31.9 L, RDW 13.2, Plt Count 260, MPV 10.2, Neut # (Auto) 3.3, Lymph # (Auto) 1.6, [place] # (Auto) 0.3, Eos # (Auto) 0.1, Baso # (Auto) 0.0, Absolute Nucleated RBC 0.00, Nucleated RBC % 0.0, Sodium 140, Potassium 3.8, Chloride 108, Carbon Dioxide 26, Anion Gap 6.0, BUN 14, Creatinine 0.7, Estimated GFR (MDRD) 100, Glucose 91, Calcium 9.3, Total Bilirubin 0.3, AST 13, ALT 10, Alkaline Phosphatase 66, Total Protein 7.1, Albumin 4.3, Globulin 2.8, Albumin/Globulin Ratio 1.5, Lipase 18 Lab results reviewed: Yes 01/23/25 12:20 01/23/25 12:20 Meds/Allgy Home Medications Ambulatory Orders Medication Instructions Recorded Confirmed buprenorphine HCl 8 mg sublingual 8 mg sublingual QDAY 08/28/24 01/23/25 tablet drospirenone (contraceptive) 4 mg 1 tab PO QDAY #84 ta bs 11/18/24 01/23/25 (28) tablet (Slynd) levothyroxine 125 mcg tablet 125 mcg PO QDAY #90 tabs 01/12/25 01/23/25 (Synthroid) sertraline 50 mg tablet (Zoloft) 100 mg (2 x 50 mg) PO QDAY #180 01/12/25 01/23/25 tabs naloxone 4 mg/actuation nasal spray 1 spray intranasal ONCE PRN opioid 05/27/25 06/06/25 overdose bisacodyl 10 mg rectal suppository 10 mg [place] DAILY PRN constipation 01/20/25 01/23/25 (Dulcolax (bisacodyl)) #12 ea Allergies Allergies Allergy/AdvReac Type Severity Reaction Status Date / Time amoxicillin Allergy Severe Hives Verified 01/23/25 12:53 clavulanic acid (From Allergy Severe Hives Verified 01/23/25 12:53 Augmentin) haloperidol Allergy Severe Unknown Verified 01/23/25 12:53 metoclopramide Allergy Severe Hallucinati Verified 01/23/25 12:53 ons prochlorperazine Allergy Severe Hallucinati Verified 01/23/25 12:53 ons fluoxetine Allergy Intermediate heartburn Verified 01/23/25 12:53 Iodinated Contrast Media Allergy Mild Itching Verified 01/23/25 12:53 vancomycin Allergy Mild flushing Verified 01/23/25 12:53 azithromycin Allergy GI issues Verified 01/23/25 12:53 naloxone AdvReac Intermediate vomit Verified 01/23/25 12:53 PFSH Active Problems All Active Problems (Updated 01/23/25 @ 13:31 by Audra Hopkins CRNA) History of right salpingo-oophorectomy (Acute) Constipation (Acute) Abdominal pain (Acute) Vomiting (Acute) Left lower quadrant pain (Acute) Pelvic pain in female (Acute) Sprain of left wrist (Acute) Abnormal CT scan (Acute) Anxiety and depression (Acute) Knee pain, chronic (Acute) Migraine with aura (Acute) Delmy thyroiditis (Acute) Opioid dependence on maintenance agonist therapy, no symptoms (Acute) Hypothyroid (Acute) Medical History Medical History (Updated 01/23/25 @ 13:31 by Audra Hopkins CRNA) Buprenorphine dependence Mixed anxiety and depressive disorder managed with Fluvoxamine till mid 3rd trimester with 3rd then stopped. prior used Zoloft up to 200 mg. At risk for breast cancer 20.2% Tyrer-Cuzlck risk Pelvic pain in female Nausea Vaginal bleeding problem IUD failure, (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 History of hyperemesis gravidarum lost 30 pounds in beginning of 3rd Supraventricular tachycardia now resolved. Surgical History Surgical History (Updated 01/23/25 @ 13:15 by Kate Lugo MD) S/P abdominal hysterectomy and right salpingo-oophorectomy History of repair of ACL History of tonsillectomy History of appendectomy History of cholecystectomy History of delivery (02/16/22) Family History Family History (Updated 08/21/24 @ 08:51 by Fay Flaherty, DANIEL) Father Alcoholism Anxiety Maternal grandmother COPD (chronic obstructive pulmonary disease) Lupus (systemic lupus erythematosus) Rheumatoid arthritis Maternal grandfather Diabetes High blood pressure Mother High blood pressure Lupus (systemic lupus erythematosus) Malignant melanoma Rheumatoid arthritis Thyroid disease Brother Seizure Social History Social History Smoking Status: Current every day smoker Do you dip or chew tobacco?: No Do you vape?: Yes Living arrangement: At home Marital Status: Domestic Partner Living Condition: With spouse/s.o. 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: No POLST Status: Full Code Anesthesia Exam (Expanded) Exam General: Alert, Oriented x3 and Cooperative Dental: WNL Mouth Openin Fingerbreadth Neck Mobility: Normal Mallampati classification: II Thyromental Distance: 4-6 cm Exam Exam Vital Signs: Vital Signs x48h Temp Pulse Resp BP Pulse Ox 01/23/25 12:54 70 22 121/83 95 01/23/25 12:39 81 124/87 98 01/23/25 12:03 36.4 C L 75 16 127/75 95 Plan Plan Anesthesia Type: General Consent for Procedure(s) Verified and Reviewed: Yes Code Status: Attempt Resuscitation ASA Classification ASA classification: 2-Mild systemic disease Is this case an emergency?: Yes
[2025-01-23] MEDS ORDERED: BUPIVACAINE 0.25% PF 30 ML VIAL ONE (13:34)
[2025-01-23] MEDS ORDERED: THROMBIN (BOVINE) 5,000 UNIT VIAL TOP ONE (13:34)
[2025-01-23] MEDS ORDERED: ROCURONIUM 50 MG/5 ML VIAL ONE (13:53)
[2025-01-23] MEDS ORDERED: ONDANSETRON 4 MG/2 ML VIAL ONE (14:10)
[2025-01-23] MEDS ORDERED: DEXAMETHASONE 4 MG/ML VIAL ONE (14:10)
[2025-01-23] MEDS ORDERED: KETOROLAC 30 MG/ML VIAL ONE (14:10)
[2025-01-23] MEDS ORDERED: ePHEDrine 50 MG/ML VIAL IVP ONE (14:17)
[2025-01-23] MEDS ORDERED: ACETAMINOPHEN 1,000 MG/100 ML 1,000 MG/100 ML BAG IV ONE (14:20)
[2025-01-23] MEDS ORDERED: NEOSTIGMINE 1 MG/1 ML 10 ML MDV ONE (14:28)
[2025-01-23] MEDS ORDERED: GLYCOPYRROLATE 1 MG/5 ML VIAL ONE (14:28)
[2025-01-23] MEDS ORDERED: DEXMEDETOMIDINE 200 MCG/2 ML VIAL ONE (14:34)
[2025-01-23] MEDS ORDERED: ATROPINE ABBOJECT 1 MG/10 ML SYRINGE IVP PRN (14:56)
[2025-01-23] MEDS ORDERED: ONDANSETRON 4 MG/2 ML VIAL IVP PRN (14:56)
--- NOTE | 2025-01-23 15:26 | OPERATIVE REPORT ---
Operative Report General Procedure Data: Operation Date: 01/23/25 13:30 Proposed Procedures p OVARIAN TORSION(Left) - Kate Lugo MD Actual Procedures p Diagnostic Laparoscopy FISH CAKE MAKER(Not Applicable) - Kate Lugo MD Pre-Op Diagnosis: SUSPECTED LEFT OVARIAN TORSION OR CYST W/PELVIC PAIN Anesthesia Type General Case Staff Anesthesia Provider: uAdra Hopkins Times Into Recovery: 01/23/25 14:42 Procedure Start: 01/23/25 14:13 Procedure End: 01/23/25 14:36 Time out: 01/23/25 14:12 Pre-Op Diagnosis: Left pelvic pain Post Op Diagnosis: Same - left ovary with simple cyst and no torsion; constipation Procedure Note Intake, IV Amount (ml): 800 Estimated Blood Loss (ml): 5 Output, Urine Amount (ml): 0 Pathology: None Indications: Acute left pelvic pain, worsening and similar to past episodes of possible ovarian torsion Findings: Surgically-absent right tube and ovary. Surgical site healing well. Left ovary with 1.5 to 2 cm simple-appearing corpus luteum cyst (left in situ, deeper within ovarian stroma). Otherwise, normal-appearing left ovary and tube, and normal-appearing uterus. Normal-appearing left fallopian tube. Bowel with large stool burden. Appendix and gallbladder surgically absent. No endometriosis or inflammatory changes present. Previously noted omental adhesion to periumbilical area and thin bowel adhesion to R mid-flank. Complications: None Other Other Information/Narrative: OPERATIVE NOTE Pre-operative diagnosis: 1. Female pelvic pain, left lower quadrant 2. Suspected intermittent ovarian torsion Procedure: Diagnostic laparoscopy right Post-operative diagnosis: Same as above - left ovary with simple cyst and no torsion; constipation Surgeon: Dr. Kate Lugo Environmental Auditor: None Anesthesia: General Findings: Surgically-absent right tube and ovary. Surgical site healing well. Left ovary with 1.5 to 2 cm simple-appearing corpus luteum cyst (left in situ, deeper within ovarian stroma). Otherwise, normal-appearing left ovary and tube, and normal-appearing uterus. Normal-appearing left fallopian tube. Bowel with large stool burden. Appendix and gallbladder surgically absent. No endometriosis or inflammatory changes present. Previously noted omental adhesion to periumbilical area and thin bowel adhesion to R mid-flank. Complications: None apparent EBL: 5 ml UOP: Not measured Specimen: None Disposition: Stable, to PACU Procedure in detail: After risks benefits and alternatives, as well as indication for procedure and anticipated post-operative recovery course was discussed with the patient informed consent was obtained and patient was taken to the operating theater where general anesthesia was administered without difficulty. Pt was prepared and draped in normal sterile fashion. Sponge stick placed in vagina for uterine manipulation. Prior to skin incision surgical time out was performed, all persons in the operating theater participated in time out and agreed. After injecting Marcaine0.25% plain, an Infraumbilical skin incision was made with scalpel, over her old incision. The fascia was grasped and tented up with a Josr while a Verrees needle was inserted. After passing into the peritoneal cavity, saline dropped readily into the abdomen, and gas insufflation was initiated. Appropriate intra-peritoneal pressure was noted. The Verrees was then removed. Direct visualization was utilized to insert 5mm scope/port. Peritoneum was further insufflated. Pelvis inspected with findings as noted. One additional 5mm ports was placed at the left lower quadrant, at the site of her previous LSC incision. Atraumatic grasper utilized to reveal aforementioned findings. Reinspected pelvis, all hemostatic. Pt taken out of trendelenberg position, insufflation released from abdomen, ports removed. Skin closed with 4.0 monocryl in a subcuticular fashion, followed by Dermabond. Sponge stick was then removed from the vagina, and the patient replaced supine. Pt tolerated procedure well. All counts correct. Pt to PACU in stable condition.
[2025-01-23] MEDS: LACTATED RINGERS 1,000 ML IV SCH ×2 (15:34→17:13)
--- NOTE | 2025-01-23 15:45 | ANESTHESIA POST OP EVALUATION ---
Anesthesia Post Eval Post Anesthesia Eval Vitals: Last Vital Signs Temp 36.4 C L 01/23/25 15:35 Pulse 64 01/23/25 15:35 Resp 14 01/23/25 15:35 BP 118/74 01/23/25 15:35 Pulse Ox 98 01/23/25 15:35 CV Function Including HR & BP: Stable Pain Control: Satisfactory Nausea & Vomiting: Negative Mental Status: Baseline Respiratory Status: Airway Patent Hydration Status: Satisfactory Anesthesia Complications: None
[2025-01-23] MEDS ORDERED: NALOXONE HCL NASAL SPRAY KIT NAS PRN (16:10)
[2025-01-23] MEDS ORDERED: BISACODYL 10 MG SUPP PR PRN (16:10)
[2025-01-23] MEDS: HYDROmorphone 0.5 MG/0.5 ML SYRINGE IVP PRN (17:13)
[2025-01-23] MEDS: ACETAMINOPHEN 500 MG TABLET PO SCH (18:50)
[2025-01-23] MEDS: ACETAMINOPHEN 1,000 MG/100 ML 1,000 MG/100 ML BAG IV ONE (18:53)
[2025-01-23] MEDS: GABAPENTIN 400 MG CAPSULE PO ONE (18:53)
[2025-01-23] MEDS ORDERED: DROSPIRENONE 4 MG PO SCH (19:00)
[2025-01-23] MEDS: KETOROLAC 30 MG/ML VIAL IVP SCH (20:08)
[2025-01-23] MEDS: hydrOXYzine PAMOATE 25 MG CAPSULE PO PRN (20:54)
[2025-01-23] MEDS: DROSPIRENONE 4 MG PO SCH (20:55)
[2025-01-23] MEDS: HYDROmorphone 2 MG TABLET PO PRN (20:58)
[2025-01-24] MEDS: HYDROmorphone 2 MG TABLET PO PRN ×2 (03:49→10:54)
[2025-01-24] MEDS: GABAPENTIN 300 MG CAPSULE PO SCH (05:35)
[2025-01-24] MEDS: HYDROmorphone 0.5 MG/0.5 ML SYRINGE IVP PRN (05:36)
[2025-01-24] MEDS: LEVOTHYROXINE 125 MCG TABLET PO SCH (06:08)
[2025-01-24] MEDS: SERTRALINE 50 MG TABLET PO SCH (08:47)
[2025-01-24] MEDS ORDERED: DROSPIRENONE 4 MG PO SCH (09:00)
[2025-01-24] MEDS ORDERED: BUPRENORPHINE HCL 8 MG PO SCH (09:00)
--- NOTE | 2025-01-24 09:11 | PROVIDER PROGRESS NOTE ---
Subjective Prog Note Date Prog Note Date: 01/24/25 Prog Note Time: 08:52 Subjective Pt reports feeling: Worse Subjective: POD #1 s/p diagnostic LSC for possible left ovarian torsion. Findings noted a normal left tube and ovary, and no surgical interventions were performed. Postop yesterday and overnight has been notable for challenges with pain mgmt (preop pain continues, now with added postop discomfort). She received Gabapentin 800 mg following surgery yesterday and has been receiving scheduled Tylenol 1000 mg + Toradol 30 mg IV. She was also ordered Dilaudid 2 mg PO Q 6 and 0.5 mg IV Q 30 min prn breakthrough pain. Overnight, oral Dilaudid was increased to 4 mg Q 4 and IV 1 mg Q 1 hr, and pain control was mildly improved. Sleep and appetite have been poor due to pain. + nausea due to pain. No vomiting. Voiding without concerns. No incision concerns. Current Medications Current Medications Current Medications: Current Medications Generic Name Dose Route Start Last Admin Trade Name Freq PRN Reason Stop Dose Admin Acetaminophen 1,000 mg 01/23/25 18:00 01/24/25 06:08 Acetaminophen 500 Mg Tablet PO 1,000 mg Q6HR JOHNSON Administration Bisacodyl 10 mg 01/23/25 16:10 Bisacodyl 10 Mg Supp [place] DAILY PRN constipation Gabapentin 300 mg 01/24/25 06:00 01/24/25 05:35 Gabapentin 300 Mg Capsule PO 300 mg TID JOHNSON Administration Hydromorphone HCl 1 mg 01/24/25 02:02 01/24/25 08:47 Hydromorphone 0.5 Mg/0.5 Ml Syringe IVP 1 mg Q1HR PRN Administration Severe Breakthrough pain(7-10) Hydromorphone HCl 6 mg 01/24/25 08:51 Hydromorphone 2 Mg Tablet PO Q4HR PRN Severe Pain (Level 7-10) Hydroxyzine Pamoate 25 mg 01/23/25 20:20 01/23/25 20:54 Hydroxyzine Pamoate 25 Mg Capsule PO 25 mg QPM PRN Administration Insomnia Lactated Ringer's 1,000 mls @ 0 mls/hr 01/23/25 13:11 Lr IV .Q0M PRN preop TKO Lactated Ringer's 1,000 mls @ 100 mls/hr 01/23/25 16:00 06/07/25 01:38 Lr IV 100 mls/hr .Q10H JOHNSON Administration Ketorolac Tromethamine 30 mg 01/23/25 20:00 01/24/25 07:50 Ketorolac 30 Mg/Ml Vial IVP 01/24/25 14:01 30 mg Q6H JOHNSON Administration Levothyroxine Sodium 125 mcg 01/24/25 07:00 01/24/25 06:08 Levothyroxine 125 Mcg Tablet PO 125 mcg QDAC JOHNSON Administration Naloxone HCl 1 kit 01/23/25 16:10 Naloxone Hcl Nasal [place] Kit MANUELA 01/25/25 16:09 ONCE PRN opioid overdose Ondansetron HCl 4 mg 01/23/25 15:10 Ondansetron 4 Mg/2 Ml Vial IVP Q6HR PRN Nausea / Vomiting Buprenorphine Hcl 8 1 each 01/23/25 19:00 01/24/25 08:47 Mg Tablet SL 1 each BID JOHNSON Administration Drospirenone ( 1 each 01/23/25 21:00 01/23/25 20:55 Contraceptive) [ PO 1 each Slynd] 4 Mg QPM JOHNSON Administration Sertraline HCl 100 mg 01/24/25 09:00 01/24/25 08:47 Sertraline 50 Mg Tablet PO 100 mg DAILY JOHNSON Administration Objective Vital Signs/Intake & Output Reviewed Vital Signs: Yes Vital Signs: Vital Signs x48h Temp Pulse Resp BP Pulse Ox 01/24/25 08:04 36.8 C 80 18 110/70 98 01/24/25 05:00 36.7 C 82 15 103/76 99 Intake & Output: Intake & Output 01/21/25 01/22/25 01/23/25 01/24/25 23:59 23:59 23:59 23:59 Intake Total 1840 / 1840 1000 / 1000 Output Total 0 / 0 Balance 1840 / 1840 1000 / 1000 Weight (kg) 77.2 kg Objective General Appearance: positive No acute distress (laying on left side and lightly dozing) Respiratory: positive No respiratory distress Cardiovascular: positive Regular rate & rhythm Abdomen: positive Tenderness and Other (Stable tenderness at LLQ; mildly tender around LSC incisions x 2) Skin: positive Color nml and Other (Incisions with Dermabond in place; mild bruising noted at umbilical incision; LLQ well-approximated with no separation, discharge, or color changes.) Extremities: positive Non-tender, Full ROM and Nml appearance Neurologic/Psychiatric: positive Oriented x3 and Mood/affect nml Lab Results 01/23/25 12:20 01/23/25 12:20 Other Labs: Lab Results x24hrs 01/23/25 01/23/25 Range/Units 12:48 12:20 WBC 5.4 (4.8-10.8) x10^3/uL RBC 4.82 (4.20-5.40) 10^6/uL Hgb 13.4 (12.0-16.0) g/dL Hct 42.0 (37.0-47.0) % MCV 87.1 (81.0-99.0) fL MCH 27.8 (27.0-31.0) pg MCHC 31.9 L (32.0-36.0) g/dL RDW 13.2 (12.0-15.0) % Plt Count 260 (130-450) 10^3/uL MPV 10.2 (7.9-10.8) fL Neut # (Auto) 3.3 (1.5-6.6) 10^3/uL Lymph # (Auto) 1.6 (1.5-3.5) 10^3/uL [place] # (Auto) 0.3 (0.0-1.0) 10^3/uL Eos # (Auto) 0.1 (0.0-0.7) 10^3/uL Baso # (Auto) 0.0 (0.0-0.1) 10^3/uL Absolute Nucleated RBC 0.00 x10^3/uL Nucleated RBC % 0.0 /100WBC Sodium 140 (135-145) mmol/L Potassium 3.8 (3.5-4.5) mmol/L Chloride 108 (101-111) mmol/L Carbon Dioxide 26 (21-32) mmol/L Anion Gap 6.0 (6-13) BUN 14 (6-20) mg/dL Creatinine 0.7 (0.6-1.3) mg/dL Estimated GFR (MDRD) 100 (>89) Glucose 91 (74-104) mg/dL Calcium 9.3 (8.5-10.3) mg/dL Total Bilirubin 0.3 (0.2-1.0) mg/dL AST 13 (10-42) IU/L ALT 10 (10-60) IU/L Alkaline Phosphatase 66 (42-121) IU/L Total Protein 7.1 (6.4-8.9) g/dL Albumin 4.3 (3.2-5.5) g/dL Globulin 2.8 (2.1-4.2) g/dL Albumin/Globulin Ratio 1.5 (1.0-2.2) Lipase 18 (11-82) U/L Urine Color LIGHT YELLOW Urine Clarity CLEAR (CLEAR) Urine pH 7.0 (5.0-7.5) PH Ur Specific [place] 1.010 (1.002-1.030) Urine Protein NEGATIVE (NEGATIVE) mg/dL Urine Glucose (UA) NEGATIVE (NEGATIVE) mg/dL Urine Ketones NEGATIVE (NEGATIVE) mg/dL Urine Occult Blood NEGATIVE (NEGATIVE) Urine Nitrite NEGATIVE (NEGATIVE) Urine Bilirubin NEGATIVE (NEGATIVE) Urine Urobilinogen 0.2 (NORMAL) (NORMAL) E.U./dL Ur Leukocyte Esterase NEGATIVE (NEGATIVE) Ur Microscopic Review NOT INDICATED Urine Culture Comments NOT INDICATED Urine HCG, Qual NEGATIVE Assessment/Plan Problem List (1) Left lower quadrant pain: Impression: Etiology for LLQ remains unclear - no evidence of torsion on LSC yesterday. Suspect molimina, although she has never routinely noted these symptoms. US 01/23 did note prominent adnexal vessels, possibly suggestive of pelvic congestion (which would also support the congestion noted on the pathology specimen from her LSC R oophorectomy in 11/2024). If pelvic congestion is new or developing, this may be causing new-onset pelvic pain. She is currently on Slynd for contraception. This may yield ovulation suppression, but she may not be having complete suppression. Severe constipation may also play a role, though this is chronic for her and pain has not been an issue in the past. - Goal for today: pre- and post-op pain control. Ordered and starting regimen similar to discharge after last admission 11/2024: Gabapentin 300 mg tid, Toradol 30 mg Q 6 x 4 doses (then transition to oral NSAIDS), Tylenol 1000 mg Q 6, and Dilaudid PO. Will increase 4 mg dose to 6 mg Q 4, which was her discharge dose in November. Additionally, yesterday I contacted her Subutex prescriber at [facility] ([employer], covering for Nguyễn Nesbitt), requesting renewal of her med (only 2 tabs left) and additional doses to take bid x 3-4 days postop. Currently, pt taking her home medication but increased dose to 8 mg bid. If no additional tabs available, she states she can tolerate Suboxone but will need Benadryl to help with itching/rash (no hx of anaphylaxis or airway concerns). - Encouraged OOB to chair and ambulation. - Encouraged PO intake and oral hydration. - Re-evaluate later today for possible discharge home. If unable to manage pain with oral medications, transition to inpatient status. (2) Opioid dependence on maintenance agonist therapy, no symptoms:
[2025-01-24] MEDS: ONDANSETRON 4 MG/2 ML VIAL IVP PRN (09:54)
[2025-01-24] MEDS ORDERED: CALCIUM CARBONATE CHEW 500 MG TABLET PO PRN (11:29)
[2025-01-24] MEDS ORDERED: FAMOTIDINE 20 MG TABLET PO PRN (11:29)
[2025-01-24] MEDS: IBUPROFEN 800 MG TABLET PO SCH (14:40)
[2025-01-24] MEDS: HYDROmorphone 1 MG/ML CARPUJECT IVP PRN (16:57)
[2025-01-24] MEDS: BUPRENORPHINE/NALOXONE 8-2 MG TAB SL SCH (18:33)
[2025-01-24] MEDS: diphenhydrAMINE INJ 50 MG/ML VIAL IVP SCH (18:33)
[2025-01-24] MEDS: diphenhydrAMINE INJ 50 MG/ML VIAL IVP ONE (19:50)
[2025-01-25] MEDS: diphenhydrAMINE INJ 50 MG/ML VIAL IVP SCH (06:12)
--- NOTE | 2025-01-25 08:34 | PHARMACY PROGRESS NOTE ---
Best Possible Medication History Admit Date and Time: 01/24/25 1233 Home Medications Medication Instructions Recorded Confirmed Type buprenorphine HCl 8 mg sublingual 8 mg sublingual QDAY 08/28/24 01/23/25 History tablet drospirenone (contraceptive) 4 mg 1 tab PO QDAY #84 ta bs 11/18/24 01/23/25 Rx (28) tablet (Slynd) levothyroxine 125 mcg tablet 125 mcg PO QDAY #90 tabs 01/12/25 01/23/25 Rx (Synthroid) sertraline 50 mg tablet (Zoloft) 100 mg (2 x 50 mg) PO QDAY #180 01/12/2502/11 Rx tabs naloxone 4 mg/actuation nasal spray 1 spray intranasal ONCE PRN opioid 01/13/25 01/23/25 History overdose bisacodyl 10 mg rectal suppository 10 mg [place] DAILY PRN constipation 01/20/25 01/23/25 Rx (Dulcolax (bisacodyl)) #12 ea Processed by: Nursing Medications reviewed in ED?: Yes Medication History completed: Yes Secondary Source(s): Pharmacy records and Insurance records [facility] Statement: As the person ultimately responsible for medication therapy, providers are able to order a medication from an existing home medication list in [facility] via the "Reconcile Routine" prior to Confirmation of that medication by work station support specialist. Such practice is discouraged except when the physician, in their clinical judgment, deems that a medical need exists for a medication without regard to previous use.
--- NOTE | 2025-01-25 14:52 | Discharge Summary ---
"Discharge Summary Admit Date: 01/23/25 Discharge Date: 01/25/25 Discharging Provider: Dr. Kate Lugo Primary Care Provider: Dr. Tanisha Rivera Code Status: Attempt Resuscitation Discharge Facility [facility]: [facility] DIAGNOSES Admission Diagnoses: Left pelvic pain History opioid use disorder Discharge Diagnoses with Status of Each Condition: Left pelvic pain, unchanged Postop s/p diagnostic laparoscopy History opioid use disorder HPI History of Present Illness: Patient is a 29 yo , sent to the ER from clinic for 5-day hx of LLQ pelvic pain. She reports pain feels just like when she presented to the ER on 12/03- 12/05 and underwent LSC for suspected ovarian torsion. Findings at that time noted a non-torsed ovary on two laparoscopies. At the second surgery, the ovary was removed per patient desires given her persistent/recurring pain. Pathology noted some congestion that may be consistent with intermittent torsion. She then started having vaginal bleeding on POD #1 c/w her first menses since her delivery. With the current pain episode, she has had pain at the left side. It started as intermittent pain, 4/10 intensity, and has evolved into constant 8/10 pain. She reports + nausea with vomiting and inability to tolerate PO since yesterday (NPO since dinner yesterday). She was seen at [facility] ER 01/19 for the same complaint. Pelvic CT and US were obtained and noted only a small ROBERTO CARLOS corpus luteum cyst and + blood flow. She was sent home suspecting possible constipation vs premenstrual pelvic pain. She returns today concerned about losing her one remaining ovary if it possibly torsed. She has been trying to manage pain with Motrin and Tylenol with no improvement. She denies any narcotic pain meds other than usual Subutex dose (8mg/day). She reports pain is worse with activity. She denies fever; chills; vaginal discharge, itching, or irritation; or change in bowel or bladder. She acknowledges having chronic constipation due to Subutex but denies this severity of pain related. Last stool was yesterday. She is s/p LSC R oophorectomy on 12/05/2024 and LSC R salpingectomy (at [facility]) 12/03/2024). She also had a LSC appy 10 yrs ago and has no hx of urolithiasis. She has been trying to manage pain with Motrin, Tylenol, and hot/cold compresses with no improvement. She reports pain is worse with activity. She denies fever; chills; vaginal discharge, itching, or irritation; or change in bowel or bladder. She acknowledges having chronic constipation due to Suboxone but states she's never had pain like this before due to it. [employer] Hx: reports usually regular, monthly menses; only menses since vaginal delivery was 12/06/2024; denies other [employer] hx; she is currently using Slynd for contraception OB Hx: A1; G1 - ; G2 - IOL for cholestasis, for NRFHT; G3 - cholestasis, 5 months ago (conceived with Paragard IUD in place) CONSULTS | PROCEDURES Consultations: None Procedures: Diagnostic laparoscopy HOSPITAL COURSE Hospital Course: Despite counseling that findings were most likely to be normal, the patient desired to proceed with diagnostic laparoscopy due to level of pain and concern that her one remaining ovary could be compromised. LSC on 6/6 was normal, noting only a small simple-appearing cyst one the L ovary, c/w corpus luteum. There were no abnormalities noted during the surgery, and it was uncomplicated. Postoperatively, the patient remained in-house for pain mgmt. Immediately postop, she was treated with Gabapentin 800 mg, Toradol, and Ofirmev. That night, she was restarted on Subutex 8 mg (patient's own med) with PRN oral and IV Dilaudid for breatkthrough pain. On POD #1, pain mgmt was adjusted to Subutex 8 mg bid, Gabapentin 300 mg tid, and higher dose Dilaudid. Her bid Subutex was changed to Suboxone + Benadryl, as the she had no additional Subutex tabs. Her prescriber at [facility] was contacted (at [place] office) on 6/6 to udpate them of her need for refill as well as planned surgery and need for 3- 4 days of bid dosing after surgery. No new prescription had been placed as of 6. She was otherwise doing well postop - ambulating, voiding, and tolerating PO. On POD #2, encouraged of IV Dilaudid dosing in order to prepare for discharge on oral medications. Later in the day, she felt that pain was manageable for discharge, and she was sent home on: Motrin 800 mg Q 8, Tylenol 1000 mg Q 6, Gabapentin 300 mg tid x 3 days, Dilaudid 6 mg Q 4 (36 tabs), and Subutex (8 mg bid x 3 days, then resume daily; 10 tabs) ALLERGIES Allergies Allergy/AdvReac Type Severity Reaction Status Date / Time amoxicillin Allergy Severe Hives Verified 01/23/25 12:53 clavulanic acid (From Allergy Severe Hives Verified 01/23/25 12:53 Augmentin) haloperidol Allergy Severe Unknown Verified 01/23/25 12:53 metoclopramide Allergy Severe Hallucinati Verified 01/23/25 12:53 ons prochlorperazine Allergy Severe Hallucinati Verified 01/23/25 12:53 ons fluoxetine Allergy Intermediate heartburn Verified 01/23/25 12:53 Iodinated Contrast Media Allergy Mild Itching Verified 01/23/25 12:53 vancomycin Allergy Mild flushing Verified 01/23/25 12:53 azithromycin Allergy GI issues Verified 01/23/25 12:53 naloxone AdvReac Intermediate vomit Verified 01/23/25 12:53 MEDICATIONS Ambulatory Orders Medication Instructions Recorded Confirmed drospirenone (contraceptive) 4 mg 1 tab PO QDAY #84 ta bs 11/18/24 01/23/25 (28) tablet (Slynd) levothyroxine 125 mcg tablet 125 mcg PO QDAY #90 tabs 01/12/25 01/23/25 (Synthroid) sertraline 50 mg tablet (Zoloft) 100 mg (2 x 50 mg) PO QDAY #180 01/12/25 01/23/25 tabs naloxone 4 mg/actuation nasal spray 1 spray intranasal ONCE PRN opioid 01/13/25 01/23/25 overdose bisacodyl 10 mg rectal suppository 10 mg [place] DAILY PRN constipation 01/20/25 01/23/25 (Dulcolax (bisacodyl)) #12 ea acetaminophen 500 mg tablet 1,000 mg (2 x 500 mg) PO Q 6HR #30 01/25/25 (Tylenol Extra Strength) tabs buprenorphine HCl 8 mg sublingual 8 mg sublingual QDAY #10 tabs 01/25/25 tablet gabapentin 300 mg capsule 300 mg PO TID #9 caps hydromorphone 2 mg tablet 6 mg (3 x 2 mg) PO Q4HR PRN Severe 01/25/25 Pain (Level 7-10) #36 tabs ibuprofen 800 mg tablet 800 mg PO Q8HR #30 tabs 0604/13 PHYSICAL EXAM AT DISCHARGE Vital Signs: Vital Signs x48h Temp Pulse Resp BP Pulse Ox 01/25/25 13:00 36.8 C 76 15 106/77 97 01/25/25 08:06 36.7 C 72 16 119/77 96 General Appearance: positive No acute distress (laying on left side and lightly dozing) Respiratory: positive No respiratory distress Cardiovascular: positive Regular rate & rhythm Abdomen: positive Tenderness and Other (Stable tenderness at LLQ; mildly tender around LSC incisions x 2) Skin: positive Color nml and Other (Incisions with Dermabond in place; mild bruising noted at umbilical incision; LLQ well-approximated with no separation, discharge, or color changes.) Extremities: positive Non-tender, Full ROM and Nml appearance Neurologic/Psychiatric: positive Oriented x3 and Mood/affect nml LABS 01/23/25 12:20 01/23/25 12:20 DIAGNOSTIC IMAGING Diagnostic Imaging Results Comments: PROCEDURE: US Pelvic w/Doppler Complete INDICATIONS: L pelvic pain, h/o r ovarian torsion+oopherectomy TECHNIQUE: Real-time scanning was performed of the pelvic organs, with image documentation. COMPARISON: 01/19/2025 and 01/20/2025. FINDINGS: Uterus: Uterus is anteverted and normal in size at 6.9 x 4.1 x 5.5 cm. The myometrium is homogeneous. The endometrium measures 10.35 mm in combined thickness. No endometrial mass or fluid. Ovaries: The right ovary is surgically absent. The left ovary measures 2.9 x 2.2 x 2.7 cm, with a calculated ovarian volume of 8.96 cc. Simple appearing cyst is noted in left ovary measures 1.8 x 2.5 x 1.7 cm in size. Less than 12 follicles can be seen in left ovary. No adnexal masses are seen. No cystic lesions measuring greater than 3 cm. Normal blood flow is seen in left ovary on color Doppler images. Other: No pathologic free abdominal or pelvic fluid. IMPRESSION: 1. Simple cyst in left ovary measures 2.5 x 1.7 x 1.8 cm in size. No solid- appearing ovarian lesion. No evidence of ovarian torsion. 2. Prior right oophorectomy. No of adnexal mass. 3. Normal-appearing uterus and endometrium. QUALITY (Female Hip Fx Only) Was patient sent home on osteoporosis medication?: No FOLLOW UP Follow Up: Please schedule appt with Dr. Rivera at 7-10 days postop TIME SPENT Time Spent in Discharge (Minutes): 25 Discharge Plan Discharge Patient Disposition: 01 Home, Self Care Condition: Stable Medically Cleared Date:: 01/25/25 Prescriptions: New ibuprofen 800 mg Tablet 800 mg PO Q8HR Qty: 30 0RF acetaminophen [Tylenol Extra Strength] 500 mg Tablet 1,000 mg PO Q6HR Qty: 30 0RF hydromorphone 2 mg Tablet 6 mg PO Q4HR PRN (Reason: Severe Pain (Level 7-10)) Qty: 36 0RF gabapentin 300 mg Capsule 300 mg PO TID Qty: 9 0RF Continued bisacodyl [Dulcolax (bisacodyl)] 10 mg suppository 10 mg [place] DAILY PRN (Reason: constipation) Qty: 12 0RF buprenorphine HCl 8 mg tablet, sublingual 8 mg sublingual QDAY Qty: 10 0RF Patient Comments: Cherelle Santana [facility] Tricia Nesbitt prescribes this medication Rx Instructions: Take bid for 3 days, then resume once daily dosing Slynd 4 mg (28) tablet 1 tab PO QDAY Qty: 84 1RF levothyroxine [Synthroid] 125 mcg tablet 125 mcg PO QDAY Qty: 90 1RF sertraline [Zoloft] 50 mg tablet 100 mg PO QDAY Qty: 180 1RF Rx Instructions: Take 2 tablets daily naloxone 4 mg/actuation spray,non-aerosol 1 spray intranasal ONCE PRN (Reason: opioid overdose) Patient Comments: CALL 911. ADMINISTER A SINGLE SPRAY IN ONE NOSTRIL. REPEAT INTO THE OTHER NOSTRIL EVERY TWO TO THREE MINUTES UNTIL PATIENT RESPONDS OR UNTIL EMERGENCY MEDICAL ASSISTANCE ARRIVES Activity Restrictions/Additional Instructions: No heavy lifting or intense exercise for one week. Pelvic rest for one week. Diet: Regular Print Language: Trinid[place] Patient Instructions: Pelvic Laparoscopy, Pelvic Congestion Syndrome Stand Alone Forms: PCP List Follow-up Care: Tanisha Rivera MD [Provider Admit Priv/Credential] - (Please call to schedule postop appt in 7-10 days)"
[2025-01-25 16:33] VITALS: O2SAT 96
[2025-01-25 18:45] VITALS: BP 120/81; TEMP 98.4
== END 2025-01-25 19:09 | disposition home or self-care (01) | DRG 358 ==
LOC: ED 11:29 → SDS 13:11 → MS3 15:31
PROVIDERS: ADMIT Obstetrics & Gynecology; ATTEND Obstetrics & Gynecology
DX: K66.0 Peritoneal adhesions (postprocedural) (postinfection); Z79.899 Other long term (current) drug therapy; F41.8 Other specified anxiety disorders; R10.32 Left lower quadrant pain; K59.03 Drug induced constipation; F17.200 Nicotine dependence, unspecified, uncomplicated; N83.12 Corpus luteum cyst of left ovary; R11.2 Nausea with vomiting, unspecified; Z90.79 Acquired absence of other genital organ(s); Z90.721 Acquired absence of ovaries, unilateral; E03.9 Hypothyroidism, unspecified; Z32.02 Encounter for pregnancy test, result negative; T40.495A Adverse effect of other synthetic narcotics, initial encounter; R10.2 Pelvic and perineal pain; F11.21 Opioid dependence, in remission; Z79.890 Hormone replacement therapy; R10.814 Left lower quadrant abdominal tenderness